=== PATIENT | female | born 1965 | race Caucasian/White ===

== ENCOUNTER 2022-03-30 05:06 | Observation (INO) ==
--- NOTE | 2022-03-10 14:34 | PAT Medication Instructions ---
Medication Instructions Date of Service March 10, 2022 Home Medications Medication Instructions Recorded blood sugar diagnostic (RichardTouch #200 ea 06/17/21 Verio test strips) clonazepam 0.5 mg tablet (Klonopin) 0.5 mg PO BID 30 Days #60 tab 01/11/22 divalproex 500 mg tablet,delayed 500 mg PO BID #60 tab 01/27/22 release (Depakote) carbidopa ER 50 mg-levodopa 200 mg 1 tab PO BID #60 tab 02/16/22 tablet,extended release gabapentin 300 mg capsule 300 mg PO .COMPLEX #120 cap 02/21/22 (Neurontin) cetirizine 10 mg tablet 10 mg PO QAM dicyclomine 10 mg capsule 10 mg PO QID PRN epinephrine 0.3 mg/0.3 mL injection, auto-injector (EpiPen) 0.3 mg IM Q3H PRN ketorolac 10 mg tablet 10 mg PO Q6H PRN lansoprazole 30 mg capsule,delayed release (Prevacid) 30 mg PO BID meclizine 12.5 mg tablet 12.5 mg PO UD PRN nitroglycerin 0.4 mg sublingual tablet (Nitrostat) 0.4 unit SUBLINGUAL UD PRN ondansetron HCl 4 mg tablet (Zofran) 4 mg PO TID PRN venlafaxine 150 mg capsule,extended release 24 hr 150 mg PO QAM albuterol sulfate 90 mcg/actuation aerosol inhaler 2 puff INHALATION Q6H PRN cholecalciferol (vitamin D3) 25 mcg (1,000 unit) capsule 25 mcg PO QAM venlafaxine 75 mg capsule,extended release 24 hr 75 mg PO HS Cbd Gummies 1 tab PO HS PRN cyclobenzaprine 10 mg tablet 10 mg PO TID PRN aspirin 81 mg chewable tablet 81 mg PO QAM nystatin 100,000 unit/gram topical powder 1 applic TOPICAL BID PRN triamcinolone acetonide 0.1 % topical cream 1 applic TOPICAL BID PRN famotidine 20 mg tablet 20 mg PO BID clonazepam 0.5 mg tablet (Klonopin) 0.5 mg PO BID divalproex 500 mg tablet,delayed release (Depakote) 500 mg PO BID carbidopa ER 50 mg-levodopa 200 mg tablet,extended release 1 tab PO BID gabapentin 300 mg capsule (Neurontin) 300 mg PO .COMPLEX buspirone 30 mg tablet 30 mg PO BID diltiazem HCl 120 mg capsule,extended release 24 hr 120 mg PO QAM insulin lispro 100 unit/mL subcutaneous pen (Humalog KwikPen (U-100) Insulin) 1 sliding scale dose SUBCUT USEASDIRECTD linagliptin 5 mg tablet (Tradjenta) 5 mg PO QAM Continue as directed epinephrine 0.3 mg/0.3 mL injection, auto-injector (EpiPen) 0.3 mg IM Q3H PRN (if needed) nitroglycerin 0.4 mg sublingual tablet (Nitrostat) 0.4 unit SUBLINGUAL UD PRN (if needed) ASK your surgeon for instructions ketorolac 10 mg tablet 10 mg PO Q6H PRN STOP taking 24 hours before surgery nystatin 100,000 unit/gram topical powder 1 applic TOPICAL BID PRN triamcinolone acetonide 0.1 % topical cream 1 applic TOPICAL BID PRN DO NOT take the morning of surgery cetirizine 10 mg tablet 10 mg PO QAM dicyclomine 10 mg capsule 10 mg PO QID PRN cholecalciferol (vitamin D3) 25 mcg (1,000 unit) capsule 25 mcg PO QAM cyclobenzaprine 10 mg tablet 10 mg PO TID PRN insulin lispro 100 unit/mL subcutaneous pen (Humalog KwikPen (U-100) Insulin) 1 sliding scale dose SUBCUT USEASDIRECTD linagliptin 5 mg tablet (Tradjenta) 5 mg PO QAM Take morning of surgery With a small sip of water, OTHERWISE NOTHING TO EAT OR DRINK AFTER MIDNIGHT: lansoprazole 30 mg capsule,delayed release (Prevacid) 30 mg PO BID meclizine 12.5 mg tablet 12.5 mg PO UD PRN (if needed) ondansetron HCl 4 mg tablet (Zofran) 4 mg PO TID PRN (if needed) venlafaxine 150 mg capsule,extended release 24 hr 150 mg PO QAM albuterol sulfate 90 mcg/actuation aerosol inhaler 2 puff INHALATION Q6H PRN (use if needed; please bring with you to hospital day of surgery if possible) aspirin 81 mg chewable tablet 81 mg PO QAM (unless surgeon directed otherwise) famotidine 20 mg tablet 20 mg PO BID clonazepam 0.5 mg tablet (Klonopin) 0.5 mg PO BID divalproex 500 mg tablet,delayed release (Depakote) 500 mg PO BID carbidopa ER 50 mg-levodopa 200 mg tablet,extended release 1 tab PO BID gabapentin 300 mg capsule (Neurontin) 300 mg PO .COMPLEX diltiazem HCl 120 mg capsule,extended release 24 hr 120 mg PO QAM buspirone 30 mg tablet 30 mg PO BID Take evening before surgery dicyclomine 10 mg capsule 10 mg PO QID PRN (if needed) lansoprazole 30 mg capsule,delayed release (Prevacid) 30 mg PO BID meclizine 12.5 mg tablet 12.5 mg PO UD PRN (if needed) ondansetron HCl 4 mg tablet (Zofran) 4 mg PO TID PRN (if needed) albuterol sulfate 90 mcg/actuation aerosol inhaler 2 puff INHALATION Q6H PRN (if needed) venlafaxine 75 mg capsule,extended release 24 hr 75 mg PO HS Cbd Gummies 1 tab PO HS PRN (if needed) cyclobenzaprine 10 mg tablet 10 mg PO TID PRN (if needed) famotidine 20 mg tablet 20 mg PO BID clonazepam 0.5 mg tablet (Klonopin) 0.5 mg PO BID divalproex 500 mg tablet,delayed release (Depakote) 500 mg PO BID carbidopa ER 50 mg-levodopa 200 mg tablet,extended release 1 tab PO BID gabapentin 300 mg capsule (Neurontin) 300 mg PO .COMPLEX insulin lispro 100 unit/mL subcutaneous pen (Humalog KwikPen (U-100) Insulin) 1 sliding scale dose SUBCUT USEASDIRECTD buspirone 30 mg tablet 30 mg PO BID Other Notes If you have any questions please call us at [phone] or [phone] or [phone] or [phone]
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
[2022-03-30] MEDS ORDERED: VANCOMYCIN HCL 1,250 MG in SODIUM CHLORIDE 0.9% 250 ML IV SCH ×2 (06:00→19:00)
[2022-03-30] MEDS ORDERED: ROPIVACAINE 0.5% HCL/PF 150 MG, BUPIVACAINE 0.75% MPF 20 ML, EPINEPHrine 0.15 MG, dexAM... INFIL SCH (06:00)
[2022-03-30] MEDS ORDERED: TRANEXAMIC ACID 1,000 MG x 1 **For Topical Use TOP SCH (06:00)
[2022-03-30] MEDS ORDERED: LR 500ML BOLUS, THEN 15ML/HR IV SCH (06:00)
[2022-03-30] MEDS ORDERED: LR 60ML/HR IV SCH (06:00)
[2022-03-30] MEDS ORDERED: ROPIVACAINE 0.5% 5 MG/ML 30 ML VIAL ONE (06:26)
[2022-03-30] MEDS ORDERED: BUPIVACAINE 0.5 % 5 MG/1 ML PF 10ML VIAL ONE (06:26)
--- NOTE | 2022-03-30 06:31 | History & Physical Bridge Note ---
Date of Service March 30, 2022 History & Physical Bridge Note I have examined the patient, reviewed the History & Physical and in the interval since the performance of the History & Physical I have noted the following changes of clinical significance: consent obtained/site verified/covid screen negative.no changes noted
[2022-03-30] MEDS ORDERED: LIDOCAINE 2% 2 ML VIAL/AMP(20MG/ML) INFIL ONE (06:33)
[2022-03-30] MEDS ORDERED: ONDANSETRON INJ 2 MG/ML 2 ML VIAL ONE (06:33)
[2022-03-30] MEDS ORDERED: PROPOFOL IV EMULSION 10 MG/ML 20 ML VIAL IV ONE (06:33)
[2022-03-30] MEDS ORDERED: MIDAZOLAM HCL 1 MG/ML 2ML VIAL ONE ×2 (06:33→07:10)
[2022-03-30] MEDS ORDERED: ORTHO JOINT ANESTHETIC ONE (06:35)
[2022-03-30] MEDS ORDERED: ePHEDrine sulfate 50 MG/ML AMP IV PRN (06:44)
[2022-03-30] MEDS ORDERED: KETOROLAC 30 MG/ML VIAL IV PRN (06:44)
[2022-03-30] MEDS ORDERED: HYDROmorphone INJ 1 MG/ML SYRINGE IV PRN (06:44)
[2022-03-30] MEDS ORDERED: ATROPINE SULFATE 0.1 MG/ML 10ML SYR IV PRN (06:44)
[2022-03-30] MEDS ORDERED: ONDANSETRON INJ 2 MG/ML 2 ML VIAL IV PRN ×2 (06:44→10:51)
[2022-03-30] MEDS ORDERED: CITRIC ACID/SODIUM CITRATE 15 ML UDC PO STA (06:51)
[2022-03-30] MEDS ORDERED: HYDROmorphone INJ 2 MG/ML SYR/VIAL ONE (07:11)
[2022-03-30] MEDS ORDERED: PHENYLEPHRINE 100MCG/ML 5ML SYR ONE (07:33)
--- NOTE | 2022-03-30 08:34 | Post Operative Brief Note ---
Immediate Post Op Note v1 Date of Surgery March 30, 2022 Pre & Post Diagnosis Operation Date: 03/30/22 07:00 Pre-Op Diagnosis: Osteoarthritis Knee Right Post-Op Diagnosis: Osteoarthritis Knee Right I identified the patient and participated in the time-out.: Yes Procedure Operation Date: 03/30/22 07:00 Actual Procedures p Right Total Knee Arthroplasty(Right) - Manish Quiroz MD Surgeon Manish Quiroz MD Digital Media Strategist Lu/Rusty/Jhonny-MS Estimated Blood Loss 75 Findings Consistent with Post-Op Diagnosis
--- NOTE | 2022-03-30 08:48 | Operative Report ---
Post Operative Report Pre & Post Diagnosis Operation Date: 03/30/22 07:00 Pre-Op Diagnosis: Osteoarthritis Knee Right Post-Op Diagnosis: Osteoarthritis Knee Right I identified the patient and participated in the time-out.: Yes Procedure Operation Date: 03/30/22 07:00 Actual Procedures p Right Total Knee Arthroplasty(Right) - Manish Quiroz MD Surgeon Arnav Quiroz MD Latex Foam Worker Lu/Rusty/Jhonny- Estimated Blood Loss 75 Findings Consistent with Post-Op Diagnosis Consistent with post op diagnosis. Specimens No specimens. Description of Procedure I particiapted in prepping dressing and assisted Dr. Quiroz during the procedure. Please see Dr. Quiroz note I attest to the content of the Intraoperative Record and any orders documented therein. Any exceptions are noted below.
--- NOTE | 2022-03-30 08:49 | Operative Report ---
Post Operative Report Pre & Post Diagnosis Operation Date: 03/30/22 07:00 Pre-Op Diagnosis: Osteoarthritis Knee Right Post-Op Diagnosis: Osteoarthritis Knee Right I identified the patient and participated in the time-out.: Yes Procedure Operation Date: 03/30/22 07:00 Actual Procedures p Right Total Knee Arthroplasty(Right) - Manish Quiroz MD Surgeon HUMAIRA Quiroz MD Chemistry Quality Control Analyst Lu/Rusty/Jhonny- Estimated Blood Loss 75 Findings Consistent with Post-Op Diagnosis see operative report Specimens see operative report Drains none Complications none Disposition Accompanied Patient To Recovery: Yes Indications This 56-year-old female presented to the office with complaints of persisting right knee pain. She had tried conservative care measures without improvement. She elected to proceed with surgical intervention after being educated about potential risks and outcomes. Preoperative imaging was obtained. Description of Procedure Patient was administered a spinal anesthetic and then taken to the operating room where she was given sedation. She was prepped and draped in the usual sterile fashion. Please see Dr. Quiroz's operative report for specifics of the procedure. I was present for the entire case from initial patient positioning through final wound closure. Assistance was provided in tissue re traction, hemostasis, trial implant placement, final implant placement, and final wound closure. Patient was taken to the recovery room in satisfactory condition. I attest to the content of the Intraoperative Record and any orders documented therein. Any exceptions are noted below.
--- NOTE | 2022-03-30 08:53 | Operative Report (OR) ---
DATE OF PROCEDURE: 03/30/2022. SURGEON: Manish Quiroz MD DIRECTOR CUSTOMER: Atilio Leigh MD SECOND DIRECTOR CUSTOMER: Allen Ojeda PA-C THIRD DIRECTOR CUSTOMER: Medical student, Jhonny. PREOPERATIVE DIAGNOSIS: Osteoarthritis, right knee. POSTOPERATIVE DIAGNOSIS: Osteoarthritis, right knee. OPERATION PERFORMED: Cemented right total knee replacement. SUMMARY OF IMPLANTS: DePuy J and J rotating platform size 3 femur, posterior cruciate substituting s ize 3 mobile bearing tray, size 38 patella, size 3 x 10 mm insert, 2 bags of Palacos G cement. BONE PATHOLOGY: Pending. ESTIMATED BLOOD LOSS: 75 mL. CRYSTALLOID: Per anesthesia. DEEP VENOUS THROMBOSIS PROPHYLAXIS: Per protocol. DESCRIPTION OF PROCEDURE: The patient was appropriately identified, site verified, consent verified. Antibiotics were confirmed as being given. The right lower extremity was prepped and draped in usu al routine fashion. Tourniquet was inflated to 275 mmHg after exsanguination of the limb with a rubb er Esmarch bandage for a total of 50 minutes. Midline exposure was utilized. Parapatellar arthrotom y performed. Synovectomy and osteophytes resected. Distal femur entered. Cruciates resected, tibia subluxated, menisci resected. Distal femur was then resected 14 mm, proximal tibia 4 mm. The exten steffen gap was excellent. The femur was sized between a 4 and a 3, was measured 4, cut 3. No notching . Flexion gap was then checked, it was excellent. Box cut was then made, a size 3 fit well. The ti clifford was sized for a 3. Appropriate broaching and reaming carried out and a trial spacer seated and t he extension was excellent, flexion was excellent, mid range flexion was excellent. Flexion was easi ly to 120 degrees. The patella was sized to a 38, it was resected leaving 14 mm. The seating hole was made and the tria l tracked well. All implants were then removed. TXA applied for 4-1/2 to 5 minutes. The wound was then irrigated. The Orthomix was injected and then the permanent implant cemented into position, tib ia, femur, and patella in that order. After 12 minutes, the tourniquet deflated. Minor bleeding poi nts controlled with electrocautery. At 14 minutes, the trial spacer was removed and the knee irrigat ed. Minor cement removal was required and then the permanent liner seated. The knee reduced and the n closed at 30-40 degrees of flexion with #2 Vicryl, 2-0 Vicryl, and stainless steel clips. Appropri ate dressing applied. The patient was transferred to recovery room in satisfactory condition, having tolerated the procedure well. Job ID: [id number]
--- NOTE | 2022-03-30 09:08 | XRay Report ---
XR knee RT 1 or 2V routine CLINICAL HISTORY: S/P R TKA TECHNIQUE: 2 views of the right knee were obtained. Comparison: Comparison is made to right knee MRI 12/07/2021 FINDINGS: Patient is status post total knee arthroplasty with expected postsurgical changes including soft tiss ue swelling, subcutaneous emphysema, and surgical staple placement. No periarticular lucency or hardw are fracture is seen. IMPRESSION: Expected postoperative appearance status post placement of total knee arthroplasty. ACT 112: Negative or not required by law. Electronically signed by: Ac Espinoza M.D. 03/30/2022 9:07 AM
--- NOTE | 2022-03-30 09:10 | Progress Notes ---
DATE OF NOTE: 03/30/2022 SUBJECTIVE: Postop check status post right total knee replacement. The patient is doing well. Yayo es chest pain, shortness of breath, fever, chills, nausea, vomiting or headache. OBJECTIVE: VITAL SIGNS: Stable. She is afebrile. Wound dressing clean, dry and intact. Spinal still in place. Postop x-rays look excellent. ASSESSMENT: Doing well. Continue care pathway. Discharge home tomorrow if does well overnight. Job ID: [id number]
--- NOTE | 2022-03-30 09:27 | Discharge Summary (DS) ---
DATE OF ADMISSION: 03/30/2022 DATE OF POTENTIAL DISCHARGE: 03/31/2022 CHIEF COMPLAINT: Right knee pain. Underwent elective right total knee replacement. The patient with complex medical history. HISTORY OF PRESENT ILLNESS: A 56-year-old female with multiple problems including significant cardia c disease. She is here for elective right total knee replacement and has been cleared for surgery. ALLERGIES: MEDICATION LIST OF ALLERGIES IS EXTENSIVE, please see med reconciliation sheet. PREADMISSION MEDICATIONS: Extensive, please see med reconciliation sheet. PAST MEDICAL AND PAST SURGICAL HISTORY: Remarkable for hypothyroidism, acute myeloid leukemia, AML-M 3 - in remission, anemia, anxiety, asthma, atypical chest pain, dysfunctional blind in right eye seco ndary to fungal infection, cerebral aneurysm left anterior communicating artery, chronic kidney disea se, concussion, COVID-19 long-hauler, fatigue, CVA, depression, diabetic polyneuropathy, dyspnea on e xertion, dyslipidemia, enchondroma, GERD, Guillain-[place], adverse reaction to anesthesia, history of blood transfusion reaction, history of COVID-19, history of toxic shock syndrome, endometriosis, on h ome oxygen therapy, paroxysmal supraventricular tachycardia, history of [place], PTSD, recurrent cystitis, restrictive lung disease, seizure disorder, sleep apnea, thyroid nodule, diabetes mellitus type 2, v ertigo. She has had thyroidectomy, sinus surgery, tooth extraction, marrow biopsy, bunion surgery, colonoscop ies, D and Cs, EGDs, laparoscopies, cholecystectomy, cataract surgery, , lumpectomy, abdomin al hysterectomy, epigastric hernia repair. FAMILY HISTORY: Remarkable for heart disease in family. SOCIAL HISTORY: Reveals she does not smoke, secondhand exposure as a child, history of social alcoho l. She is a . She does have a son and they live together. She is self-employed. She feels safe at home. REVIEW OF SYSTEMS: Reveals no new findings. Postop x-rays look excellent. ASSESSMENT: Status post right total knee replacement. PLAN: To home with home services tomorrow if she does well overnight. Job ID: [id number]
[2022-03-30] MEDS ORDERED: MAGNESIUM HYDROXIDE SUSP 30 ML UDC PO PRN (10:51)
[2022-03-30] MEDS ORDERED: MECLIZINE 12.5 MG TAB PO PRN (10:51)
[2022-03-30] MEDS ORDERED: ALUMINUM/MAGNESIUM SUSP 30 ML UDC PO PRN (10:51)
[2022-03-30] MEDS ORDERED: DICYCLOMINE HCL 10 MG CAP PO PRN (10:51)
[2022-03-30] MEDS ORDERED: HYDROmorphone INJ 0.5 MG/0.5 ML SYR IV PRN (10:51)
[2022-03-30] MEDS ORDERED: NALOXONE HCL 0.4 MG/1 ML VIAL/CARP IV PRN (10:51)
[2022-03-30] MEDS ORDERED: oxyCODONE HCL IR 5 MG TAB (IMMEDIATE RELEASE) PO PRN (10:51)
[2022-03-30] MEDS ORDERED: ALBUTEROL HFA 8 GM INHALER INH PRN (10:51)
[2022-03-30] MEDS ORDERED: bisacodyL 10 MG SUPP PR PRN (10:51)
[2022-03-30] MEDS ORDERED: diphenhydrAMINE 50 MG/ML VIAL IV PRN (10:51)
[2022-03-30] MEDS ORDERED: SODIUM CHLORIDE 0.9% 1000ML 1,000 ML IV SCH (10:51)
[2022-03-30] MEDS ORDERED: GLUCOSE 40% GEL 15 GM TUBE PO PRN (11:15)
[2022-03-30] MEDS ORDERED: DEXTROSE 50% 50 ML SYRINGE IV PRN (11:15)
[2022-03-30] MEDS ORDERED: CARBOHYDRATES FOR HYPOGLYCEMIA PO PRN (11:15)
[2022-03-30] MEDS ORDERED: GLUCOSE 10 TABS/TUBE PO PRN (11:15)
[2022-03-30] MEDS ORDERED: GLUCAGON FOR INJ 1 MG VIAL IM PRN (11:15)
[2022-03-30] MEDS: clonazePAM 0.5 MG TAB PO SCH ×2 (11:55→21:00)
[2022-03-30] MEDS: MULTIVITAMIN TAB PO SCH (12:17)
[2022-03-30] MEDS: GABAPENTIN 300 MG CAP PO SCH (12:17)
[2022-03-30] MEDS: DIVALPROEX DELAY RELEASE 500 MG TAB PO SCH ×2 (12:17→20:55)
[2022-03-30] MEDS: PANTOprazole 40 MG TAB PO SCH ×2 (12:17→20:55)
[2022-03-30] MEDS: DOCUSATE SODIUM 100 MG CAP PO SCH ×2 (12:17→20:55)
[2022-03-30] MEDS: INSULIN ASPART PER UNIT SC SCH ×3 (12:26→22:32)
[2022-03-30] MEDS: ASPIRIN 81 MG CHEW PO SCH (12:27)
[2022-03-30] MEDS: FAMOTIDINE 20 MG TAB PO SCH ×2 (12:27→20:55)
[2022-03-30] MEDS: CETIRIZINE HCL 10 MG TABLET PO SCH (12:40)
[2022-03-30] MEDS: busPIRone 15 MG TAB PO SCH ×2 (12:40→20:56)
[2022-03-30] MEDS: CARBIDOPA/LEVODOPA 50/200MG EXT REL TAB PO SCH ×2 (12:40→20:56)
[2022-03-30] MEDS: VENLAFAXINE HCL XR 150 MG CAPXR PO SCH (12:40)
[2022-03-30] MEDS: dilTIAZem HCL 120 MG CAPCR PO SCH (12:41)
[2022-03-30] MEDS: KETOROLAC 30 MG/ML VIAL IV SCH ×2 (12:41→18:18)
--- NOTE | 2022-03-30 13:36 | Anesthesiology Progress Note ---
Date of Service March 30, 2022 Anesthesia Post Procedure Vital Signs Vital Signs: Temp Pulse Pulse Resp BP Pulse Ox 03/30/22 12:42 36.8 C 91 H 16 109/72 97 03/30/22 11:40 36.4 C L 92 H 20 122/79 95 03/30/22 11:10 36.6 C 89 14 120/72 93 03/30/22 10:40 36.4 C L 86 12 112/74 94 03/30/22 10:25 36.6 C 87 14 121/72 94 03/30/22 10:15 90 12 108/76 93 03/30/22 10:05 94 H 15 109/78 95 03/30/22 09:55 92 H 12 111/76 95 03/30/22 09:45 93 H 12 141/79 H 96 03/30/22 09:35 90 14 126/83 92 03/30/22 09:25 87 12 143/74 H 95 03/30/22 09:15 90 16 115/73 93 03/30/22 09:05 89 16 126/68 94 03/30/22 08:55 91 H 16 113/66 96 03/30/22 08:48 36.6 C 89 21 101/46 L 91 03/30/22 05:36 36.9 C 80 18 139/82 97 Transfer of Care Handoff Completed per policy Notes Mental Status: alert / awake / arousable Patient Amnestic to Procedure: Yes Nausea / Vomiting: adequately controlled Pain: adequately controlled Airway Patency, RR, SpO2: stable & adequate BP & HR: stable & adequate Hydration State: stable & adequate Neuraxial Anesthesia: was administered and sensory block is resolving Anesthetic Complications: no major complications apparent
[2022-03-30] MEDS ORDERED: ORTHO WARFARIN NOMOGRAM SCH (14:00)
[2022-03-30] MEDS: ACETAMINOPHEN 500 MG TAB PO SCH ×2 (14:13→20:54)
--- NOTE | 2022-03-30 15:53 | Progress Notes ---
DATE OF SERVICE: 03/30/2022 SUBJECTIVE: Doing well status post right total knee replacement, is sitting up, eating, drinking, no aguilar no nausea or vomiting. Denies chest pain, shortness of breath, fever, chills, nausea, vomiting o r headache. OBJECTIVE: VITAL SIGNS: Stable. She is afebrile. Can do a straight leg raise. Can do active plantar and dorsiflexion of her foot, ankle and toes. ASSESSMENT AND PLAN: Doing well. Saline lock IV. Mobilize. Job ID: [id number]
[2022-03-30] MEDS: WARFARIN SOD 5 MG TAB PO SCH (16:28)
[2022-03-30] MEDS: ASCORBIC ACID 500 MG TAB PO SCH (16:29)
[2022-03-30] MEDS: FERROUS GLUCONATE 324 MG TAB PO SCH (16:29)
[2022-03-30] MEDS ORDERED: SENNA 8.6 MG TAB PO SCH (21:00)
[2022-03-30] MEDS ORDERED: VENLAFAXINE HCL XR 75 MG CAPXR PO SCH (21:00)
[2022-03-30] MEDS ORDERED: GABAPENTIN 300 MG CAP PO SCH (21:00)
[2022-03-31] MEDS: KETOROLAC 30 MG/ML VIAL IV SCH ×2 (00:05→05:56)
[2022-03-31] MEDS: ACETAMINOPHEN 500 MG TAB PO SCH (05:56)
[2022-03-31 06:49] LABS: Hemoglobin 10.4 g/dL (12.0-16.0); Mean Corpuscular Hemoglobin 32.4 pg (25-34); Mean Corpuscular Hgb Conc 34.7 g/dL (32-36); Mean Corpuscular Volume 93.5 fL (80-100); Mean Platelet Volume 9.4 fL (7.4-10.4); Platelet Count 168 K/uL (130-400); RDW Coefficient of Variation 12.2 % (11.5-14.5); RDW Standard Deviation 41.8 fL (36.4-46.3); Red Blood Count 3.21 M/uL (4.2-5.4); White Blood Count 9.05 K/uL (4.8-10.8)
[2022-03-31 07:04] LABS: Prothrombin Time 10.8 Seconds (9.0-12.0)
[2022-03-31 07:34] LABS: BUN Creatinine Ratio 25.7 (10-20); Calcium 8.1 mg/dl (8.5-10.1); Creatinine Clr Calc Pharmacy 96.1 ml/min; Est GFR (African American) 110.7 ml/min; Est GFR (Non-African American) 95.5 ml/min; Potassium 4.2 mmol/L (3.5-5.1)
--- NOTE | 2022-03-31 08:20 | Progress Notes ---
SUBJECTIVE: Postop check status post right total knee replacement. The patient is doing well, she i s sitting up in bed, reading. She has no issues. Denies chest pain, shortness of breath, fever, chi lls, nausea, vomiting or headache. OBJECTIVE: VITAL SIGNS: Stable. She is afebrile. LABORATORY DATA: Hematocrit stable at 30. INR pending. PRP pending. ASSESSMENT AND PLAN: Doing well. Discharge to home today after PT/OT. Coumadin dose per nomogram, if INR is less than 1.4, discharge on 4 mg Coumadin. Job ID: [id number]
[2022-03-31] MEDS: INSULIN ASPART PER UNIT SC SCH (08:54)
[2022-03-31] MEDS: ASPIRIN 81 MG CHEW PO SCH (08:58)
[2022-03-31] MEDS: busPIRone 15 MG TAB PO SCH (08:58)
[2022-03-31] MEDS: ASCORBIC ACID 500 MG TAB PO SCH (08:58)
[2022-03-31] MEDS: FERROUS GLUCONATE 324 MG TAB PO SCH (08:58)
[2022-03-31] MEDS: CARBIDOPA/LEVODOPA 50/200MG EXT REL TAB PO SCH (08:58)
[2022-03-31] MEDS: PANTOprazole 40 MG TAB PO SCH (08:58)
[2022-03-31] MEDS: DIVALPROEX DELAY RELEASE 500 MG TAB PO SCH (08:58)
[2022-03-31] MEDS: clonazePAM 0.5 MG TAB PO SCH (08:58)
[2022-03-31] MEDS: dilTIAZem HCL 120 MG CAPCR PO SCH (08:58)
[2022-03-31] MEDS: GABAPENTIN 300 MG CAP PO SCH (08:58)
[2022-03-31] MEDS: CETIRIZINE HCL 10 MG TABLET PO SCH (08:58)
[2022-03-31] MEDS: DOCUSATE SODIUM 100 MG CAP PO SCH (08:59)
[2022-03-31] MEDS: FAMOTIDINE 20 MG TAB PO SCH (08:59)
[2022-03-31] MEDS: MULTIVITAMIN TAB PO SCH (08:59)
[2022-03-31] MEDS: VENLAFAXINE HCL XR 150 MG CAPXR PO SCH (08:59)
--- NOTE | 2022-03-31 09:04 | Orthopedic Progress Note ---
Date of Service March 31, 2022 Assessment & Plan (1) S/P total knee replacement using cement: Plan: Patient's dressings were changed today by me. New pressure dressing and NATO hose were applied. She will leave this in place until seen by home health on Monday. It can be changed at that time if soiled. Continue using her walker for ambulation. Use the knee immobilizer when out of bed for today and tomorrow. It may be discontinued entirely on Monday morning. Ice and elevate the knee frequently to reduce pain and swelling. Prescriptions for Percocet and Coumadin have been sent to her pharmacy. Written discharge instructions have been provided. Follow-up in the office in 2 weeks as scheduled for staple removal. Admission and Anticipated Discharge Date Admission Date: March 30, 2022 Subjective Patient is seen in her room this morning. She states she did well overnight. She feels ready for discharge to home. She denies any chest pain, shortness of breath, nausea, vomiting, abdominal pain, or significant knee pain. She has been out of bed. She states her pain has been well controlled while in the hospital and she is pleased with the outcome so far. Review of Systems Review of Systems: Unchanged from yesterday. Physical Exam Physical Exam: General: Well-developed, well-nourished, middle-aged female, in no acute distress. Sitting in Bed. Alert and oriented. Conversive. Skin: Warm and dry with good turgor. No rashes. Postsurgical dressing is in place on the right knee. Upon removal, rashida are intact. Wound edges are well approximated. No erythema or warmth. No significant edema. No ecchymosis. No active bleeding. Musculoskeletal: Right knee evaluation reveals intact motor function to the knee and ankle. Patient is able to perform straight leg raise. She has full terminal extension. Flexion to 70 degrees easily. Neurologic: Gross sensation is intact across the leg by soft touch. Peripheral pulses are 2+. Results & Data ([facility]) Vital Signs (Past 12 Hours) Vital Signs Temp Pulse Resp BP Pulse Ox 03/31/22 07:45 37 C 84 18 107/68 91 03/31/22 03:17 36.4 C L 77 18 102/67 97 03/30/22 23:17 36.7 C 74 18 101/65 97 Laboratory Results CBC obtained this morning shows a white count of 9.05. H&H of 10.4 and 30.0. Platelets 168,000. INR is 1.0. PRP obtained this morning shows a sodium of 134. Potassium 4.2. BUN 18 with creatinine 0.70. Glucose this morning is 140. Max BSG overnight was 202.
[2022-03-31] MEDS: WARFARIN SOD 5 MG TAB PO SCH (11:44)
== END 2022-03-31 12:50 | disposition home health service (06) ==
LOC: 3E 05:06 → ASU 05:06

== ENCOUNTER 2022-11-03 19:51 | Inpatient (IN) ==
[2022-11-03 20:36] LABS: Basophils # (auto) 0.04 K/uL (0-0.2); Basophils % (auto) 0.3 %; Eosinophils # (auto) 0.05 K/uL (0-0.50); Eosinophils % (auto) 0.4 %; Hematocrit (blood only) 39.1 % (37.0-47.0); Hemoglobin 13.5 g/dl (12.0-16.0); Immature Granulocytes # (auto) 0.05 K/uL (0.01-0.20); Immature Granulocytes % (auto) 0.4 %; Lymphocytes # (auto) 1.04 K/uL (1.2-3.4); Lymphocytes % (auto) 8.9 %; Mean Corpuscular Hemoglobin 32.1 pg (25.0-34.0); Mean Corpuscular Hgb Conc 34.5 g/dL (32.0-36.0); Mean Corpuscular Volume 93.1 fL (80.0-100.0); Mean Platelet Volume 9.9 fL (9.4-12.4); Monocytes # (auto) 0.75 K/uL (0.11-0.59); Monocytes % (auto) 6.4 %; Neutrophils % (auto) 83.6 %; Platelet Count 198 K/uL (130-400); RDW Coefficient of Variation 11.8 % (11.5-14.5); White Blood Count 11.73 K/ul (4.8-10.8)
[2022-11-03] MEDS ORDERED: SODIUM CHLORIDE 0.9% 1000ML 1,000 ML IV ONE (21:55)
[2022-11-03] MEDS ORDERED: MoRPHine SULFATE 4 MG/ML 1 ML CARP\\VIAL IV STA (21:55)
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
[2022-11-03 22:27] LABS: Albumin Level 4.3 gm/dl (3.4-5.0); Bilirubin,Total 0.9 mg/dl (0.2-1.0); Calcium 9.3 mg/dl (8.5-10.1)
[2022-11-03 22:33] LABS: Albumin Globulin Ratio 1.5 (0.9-2); BUN Creatinine Ratio 22.2 (10-20); Creatinine Clr Calc Pharmacy 93.7 ml/min; Est GFR (Non-African American) 92.3 ml/min; Globulin 2.9 gm/dl (2.5-4.0); Total Protein 7.2 gm/dl (6.0-8.3)
[2022-11-03 22:41] LABS: Appearance Urine Cloudy (Clear); Bilirubin Urine 1+ (Negative); Blood Urine 3+ (Negative); Color Urine Red; Glucose Urine UA Negative (Negative); Ketones Urine Negative (Negative); Leukocyte Esterase Urine Trace (Negative); Nitrite Urine Positive (Negative); Protein Urine 3+ (Negative); Specific Gravity Urine 1.025 (1.000-1.030); Urobilinogen Urine Negative (Negative); pH Urine 6.5 (4.5-7.5)
[2022-11-03 22:44] LABS: Bacteria Urine 2+ (Negative); RBC Urine >30 /hpf (0-4)
[2022-11-03 22:45] LABS: Epithelial Cell Urine 0-5 /lpf (0-5); WBC Urine >30 /hpf (0-5)
[2022-11-03] MEDS ORDERED: cefTRIAXone SODIUM 1,000 MG in DEXTROSE 5% AD-VAN 50 ML IV STA (23:51)
--- NOTE | 2022-11-04 00:23 | Urology Consultation ---
Date of Consultation November 04, 2022 Assessment & Plan (1) Hematuria: I discussed with the treating emergency room physician and he is having the patient admitted on the hospitalist service secondary to pyelonephritis. From a urologic perspective we recommend proceeding as follows: Provide analgesics Provide antiemetics Provide IV fluid for hydration Follow serial labs Continue antibiotics. Rocephin has been initiated emergency department. Appropriate cultures have been sent and antibiotics can be tailored based on results of these cultures. At the present time the patient is afebrile, normotensive, and is not in renal failure. I therefore feel a trial of medical management for pyelonephritis is reasonable without the need for surgical intervention. The patient is noted to have hydronephrosis which is new on today's imaging. This could be related to scarring from patient's pyeloplasty or could be related to her underlying pyelonephritis. If the patient would develop fevers or hypotension or other signs of worsening sepsis a cystoscopy could be performed with potential stent placement. This would best be reserved however once the patient's pyelonephritis has been treated. If the patient does develop fevers consideration can be given to escalating the patient's antibiotics We will continue to follow while the patient is hospitalized (2) Hydronephrosis: History of Present Illness History of Present Illness This is a 56-year-old female who presented to [facility] emergency department secondary to hematuria and right flank pain. Patient notes that approximately 3 days ago she developed some spontaneous hematuria and she characterized it as dark red blood with some visible blood clots. She adds that she does not take any blood thinners or anticoagulants. She also notes that she has never had hematuria like this before. In addition the patient has some right-sided abdominal pain along with some right-sided flank pain. She notes that the pain does not really radiate and she does note that it does not have any modifying factors other than it was relieved with some morphine administered in the emergency department. She has associated dysuria and a feeling of incomplete bladder emptying. She also notes that her urine stream appears to be weaker than usual. She has had nausea without vomiting. She has not had any recorded fevers but did note some shakes and chills. She denies passing any kidney stones since her symptoms began. The patient does note that she was told she had kidney stones approximately 2 years ago and does not remember passing any stones and these have never given her any problems before. She further adds from a urologic standpoint she had hydronephrosis noted when she was age 12. She did see a urologist at [facility] in [place], [place] where she had to have a pyeloplasty. Patient notes that since this procedures performed she has had surveillance cystoscopies but has never had any stent placement in the right ureter. In addition she notes that she has never had lithotripsy for any kidney stones. The patient notes that she no longer follows with a urologist as the performing physician has since retired and she has never had any further issues so therefore she stopped following with a urologist. Since arrival to the emergency department patient has had labs and imaging which [facility] note reviewed. CT scan of the abdomen pelvis showed mild right hydronephrosis and hydroureter which extended to the level of the urinary bladder. No kidney stones were noted in the right sided urinary system. There was some edema of the surrounding ureter. These findings were felt to represent pyelonephritis. (This CT scan was compared to CT scan performed at [facility] on 07/13/2021. On this study the patient was noted to have some fullness of the right renal collecting system without hydronephrosis. 2 nonobstructing kidney stones were noted.) Labs include a CBC her white blood cell count had a slight elevation at 11.7. Hemoglobin, hematocrit, platelet count were all within normal range. Chemistry profile showed sodium, potassium, BUN, creatinine were all within normal range. Urinalysis showed cloudy urine with 3+ blood. This study was also positive for nitrites. There is trace leukocyte Estrace on the study and greater than 30 white blood cells per high- power field with 2+ bacteria. Since arrival to the emergency department the patient has received 1 L of normal saline solution and antibiotics in form of Rocephin. At the time of my interview she was resting comfortably in bed and she was in no distress. Allergies Allergy/AdvReac Type Severity Reaction Status Date / Time bee venom protein (honey bee) Allergy Severe all Verified 11/03/22 21:55 stinging insects - Anaphylaxis benzonatate Allergy Severe Anaphylaxis Verified 11/03/22 21:55 cephalexin [From Keflex] Allergy Severe Rash Verified 11/03/22 21:55 fish derived Allergy Severe RESP Verified 11/03/22 21:55 DISTRESS glimepiride Allergy Severe CAN'T Verified 11/03/22 21:55 REMEMBER, ONLY REMEMBER SEVERE Iodinated Contrast Media Allergy Severe Difficulty Verified 11/03/22 21:55 Breathing Penicillins Allergy Severe Hives Verified 11/03/22 21:55 metoclopramide Allergy Intermediate HIVES, RASH Verified 11/03/22 21:55 metronidazole Allergy Intermediate Rash Verified 11/03/22 21:55 sucralfate Allergy Intermediate HIVES, RASH Verified 11/03/22 21:55 Sulfa (Sulfonamide Allergy Intermediate Hives Verified 11/03/22 21:55 Antibiotics) trimethoprim Allergy Intermediate Hives Verified 11/03/22 21:55 adhesive tape Allergy Mild Rash Verified 11/03/22 21:55 doxepin Allergy Mild Rash Verified 11/03/22 21:55 norfloxacin Allergy Mild Rash Verified 11/03/22 21:55 cefadroxil Allergy Unknown Unknown Verified 11/03/22 21:55 Phenothiazines Allergy Unknown Unknown Verified 11/03/22 21:55 prochlorperazine Allergy Unknown Unknown Verified 11/03/22 21:55 [From Compazine] trazodone Allergy Unknown CAN'T Verified 11/03/22 21:55 REMEMBER diclofenac AdvReac Severe CAUSED A Verified 11/03/22 21:55 SEIZURE propofol AdvReac Severe agitated, Verified 11/03/22 21:55 combative, somnolent, hallucination tetracycline AdvReac Severe Abdominal Verified 11/03/22 21:55 Pain erythromycin base AdvReac Intermediate HEARING Verified 11/03/22 21:55 LOSS fentanyl AdvReac Intermediate depression Verified 11/03/22 21:55 meperidine [From Demerol] AdvReac Intermediate HALLUCINATI Verified 11/03/22 21:55 ONS metformin AdvReac Intermediate JITTERY Verified 11/03/22 21:55 ropinirole AdvReac Intermediate HALLUCINATI Verified 11/03/22 21:55 ONS chloraprep Allergy Intermediate Blister Uncoded 11/03/22 21:55 Home Medications Medication Instructions Recorded Confirmed Type cetirizine 10 mg tablet 10 mg PO QAM 10/04/18 11/03/22 History dicyclomine 10 mg capsule 10 mg PO QID PRN IBS 10/04/18 11/03/22 History epinephrine 0.3 mg/0.3 mL 0.3 mg IM Q3H PRN Allergic Reaction 10/04/18 11/03/22 History injection, auto-injector (EpiPen) lansoprazole 30 mg capsule,delayed 30 mg PO BID 10/04/18 11/03/22 History release (Prevacid) meclizine 12.5 mg tablet 12.5 mg PO UD PRN dizzy 10/04/18 11/03/22 History nitroglycerin 0.4 mg sublingual 0.4 unit sublingual UD PRN Chest 10/04/18 11/03/22 History tablet (Nitrostat) Pain albuterol sulfate 90 mcg/actuation 2 puff inhalation Q6H PRN 08/18/20 11/03/22 History aerosol inhaler Shortness Of Breath cholecalciferol (vitamin D3) 25 25 mcg PO QAM 08/18/20 11/03/22 History mcg (1,000 unit) capsule Cbd Gummies 1 tab PO HS PRN Sleep 07/13/21 11/03/22 History cyclobenzaprine 10 mg tablet 10 mg PO TID PRN MUSCLE SPASMS 07/13/21 11/03/22 History aspirin 81 mg chewable tablet 81 mg PO QAM 07/30/21 11/03/22 History nystatin 100,000 unit/gram topical 1 applic topical BID PRN Skin 07/30/21 11/03/22 History powder Irritation triamcinolone acetonide 0.1 % 1 applic topical BID PRN Skin 07/30/21 11/03/22 History topical cream Irritation famotidine 20 mg tablet 20 mg PO BID 08/23/21 11/03/22 History buspirone 30 mg tablet 30 mg PO BID 03/09/22 11/03/22 History insulin lispro 100 unit/mL 1 sliding scale dose subcut 03/10/22 11/03/22 History subcutaneous pen (Humalog KwikPen USEASDIRECTD (U-100) Insulin) linagliptin 5 mg tablet (Tradjenta) 5 mg PO QAM 03/10/22 11/03/22 History diltiazem HCl 120 mg 120 mg PO QAM #90 caps 04/12/22 11/03/22 Rx capsule,extended release 24 hr divalproex 500 mg tablet,delayed 500 mg PO .COMPLEX #90 tabs 07/11/22 11/03/22 Rx release (Depakote) blood sugar diagnostic (OneTouch #200 ea 08/01/22 Rx Verio test strips) clonazepam 0.5 mg tablet (Klonopin) 0.5 mg PO BID 30 days #60 tabs 10/20/22 11/03/22 Rx gabapentin 300 mg capsule 300 mg PO .COMPLEX #120 caps 10/24/22 11/03/22 Rx (Neurontin) carbidopa ER 50 mg-levodopa 200 mg 1 tab PO BID 11/03/22 11/03/22 History tablet,extended release ondansetron HCl 4 mg tablet 4 mg PO Q8H PRN NAUSEA/VOMITING 11/03/22 11/03/22 History rimegepant 75 mg disintegrating 75 mg PO DIRECTED for a migraine 11/03/22 11/03/22 History tablet (Nurtec ODT) Patient History Medical History Acquired hypothyroidism 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 Anemia Anxiety Asthma Atypical chest pain Blind right eye Cerebral aneurysm Chronic kidney disease, unspecified Concussion COVID-19 long hauler CVA (cerebral vascular accident) Depression Diabetic polyneuropathy MARTINEZ (dyspnea on exertion) Dyslipidemia Enchondroma GERD (gastroesophageal reflux disease) Guillain-[place] disease History of adverse reaction to anesthesia History of blood transfusion History of COVID-19 History of toxic shock syndrome (~1999) Hx of endometriosis Kidney stones Multiple falls On home oxygen therapy Paroxysmal SVT (supraventricular tachycardia) Past myocardial infarction PTSD (post-traumatic stress disorder) Recurrent cystitis Restrictive lung disease Seizure disorder Sleep apnea Thyroid nodule Type 2 diabetes mellitus Vertigo Surgical History H/O partial thyroidectomy H/O sinus surgery H/O tooth extraction H/O wisdom tooth extraction History of bone marrow biopsy History of bunionectomy History of colonoscopy History of dilatation and curettage History of esophagogastroduodenoscopy (EGD) History of insertion of tunneled central venous catheter (CVC) with port History of laparoscopy History of loop recorder History of removal of tunneled central venous catheter (CVC) with port Hx laparoscopic cholecystectomy Hx of cataract surgery Hx of tonsillectomy Previous section S/P breast lumpectomy S/P total abdominal hysterectomy Status post epigastric hernia repair, follow-up exam Family History Mother Heart disease Sister Heart disease Epilepsy Sister Epilepsy Social History Smoking Status: Never smoker Second Hand Exposure: Yes (as a child); Hx Alcohol Use: Yes Hx Substance Use: No Preferred Language: Faroese Communication Ability: Effective Ultrasound Applications Specialist Required: No Beliefs That Will Affect Care: None marital status: / Current Living Situation: Family Current Living Situation Comment: She and her one son live together current occupation: self-employed Feels Safe at Home: Yes Assistive Devices: Walker Review of Systems Constitutional: + chills; no fever Eyes: no eye pain Ear, Nose, Mouth, Throat: no ear pain Respiratory: no cough and no dyspnea Cardiovascular: no chest pain Gastrointestinal: + abdominal pain (Right sided) and + nausea; no vomiting Genitourinary: as per Subjective / HPI Musculoskeletal: + back pain (Right flank) Integumentary: no rash Neurologic: no localized weakness Physical Exam Constitutional: WD/WN, vitals as above Eyes: no conjunctival abnormality ENMT: Ears: no hearing impairment and no external ear abnormality Mouth: no oropharynx abnormality Neck: trachea midline Respiratory: normal respiratory effort; no respiratory distress and no labored breathing Cardiovascular: Rate/Rhythm: regular rate, regular rhythm and + tachycardic Vessels: dorsalis pedis pulses present and radial pulses present Gastrointestinal (Abdomen): Soft, nonrigid, nondistended. There is only mild tenderness with palpation on the right side of her abdomen. Musculoskeletal: No calf tenderness. Feet are warm and nonmottled. Skin: no rashes Neurologic: moves all extremities Psychiatric: A+Ox3, euthymic affect Genitourinary: + CVA tenderness (Right sided, noted with percussion) Results & Data ([facility]) Vital Signs (Past 12 Hours) Vital Signs Temp Pulse Pulse Resp BP BP Pulse Ox 11/03/22 22:00 105 H 18 111/60 97 11/03/22 20:59 107 H 16 152/104 H 98 11/03/22 19:57 37.4 C 119 H 18 142/91 H 98 O2 Del Method 11/03/22 22:00 Room Air 11/03/22 20:59 Room Air 11/03/22 19:57 Room Air PG Care Time/CCT Total # of Minutes Spent Total Time Spent with Patient: Total time spent is greater than 50% in coordination of care (as documented) at patient's floor/unit and/or counseling patient: Coding Level of Care Code INP/OBS CONSULT LVL 5, 80 MIN Diagnoses Hematuria R31.9 Hydronephrosis N13.30
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
[2022-11-04] MEDS ORDERED: LANSOPRAZOLE 30 MG SOLTAB PO STA (00:43)
[2022-11-04] MEDS ORDERED: POLYETHYLENE (MIRALAX) 17 GM PACK PO PRN (02:58)
[2022-11-04] MEDS ORDERED: GLUCOSE 40% GEL 15 GM TUBE PO PRN (02:58)
[2022-11-04] MEDS ORDERED: CARBOHYDRATES FOR HYPOGLYCEMIA PO PRN (02:58)
[2022-11-04] MEDS ORDERED: GLUCAGON FOR INJ 1 MG VIAL SQ PRN (02:58)
[2022-11-04] MEDS ORDERED: DOCUSATE SODIUM/SENNA 50/8.6MG TAB PO PRN (02:58)
[2022-11-04] MEDS ORDERED: MoRPHine SULFATE 2 MG/ML CARP IV PRN (02:58)
[2022-11-04] MEDS ORDERED: GLUCOSE 10 TAB/TUBE PO PRN (02:58)
[2022-11-04] MEDS ORDERED: DEXTROSE 50% 50 ML SYRINGE IV PRN (02:58)
[2022-11-04] MEDS: MoRPHine SULFATE 4 MG/ML 1 ML CARP\\VIAL IV PRN ×3 (03:37→20:32)
[2022-11-04] MEDS: LACTATED RINGER'S 1,000 ML IV SCH ×2 (03:40→13:23)
[2022-11-04] MEDS: ACETAMINOPHEN 325 MG TAB PO PRN ×2 (03:57→23:03)
[2022-11-04] MEDS ORDERED: Nursing to Pharmacy Communication SCH (04:15)
[2022-11-04] MEDS: INSULIN ASPART PER UNIT SC SCH ×4 (05:36→21:55)
[2022-11-04] MEDS ORDERED: INSULIN ASPART PER UNIT SC SCH (07:30)
--- NOTE | 2022-11-04 07:58 | CT Scan Report ---
CT abd pelvis wo con CLINICAL HISTORY: R flank pain TECHNIQUE: Helical axial images of the abdomen and pelvis were obtained. Automated dose lowering tech niques and/or adjustment according to patient size were utilized for this exam. This exam was perfor med without intravenous contrast. CT DOSE: 965.58 mGy.cm COMPARISON: Comparison is made to CT abdomen pelvis 07/13/2021 FINDINGS: Lower chest: No acute abnormality. Liver: Unremarkable. No focal lesions are seen. Gallbladder and biliary tree: Patient is status post cholecystectomy. No intra- or extrahepatic bilia ry ductal dilation. Pancreas: Unremarkable, no focal lesions. Spleen: Splenule is incidentally noted. Adrenals: Unremarkable. Kidneys and ureters: There is right hydronephrosis and hydroureter without identifiable obstructive s tone. A few calcifications are noted in the right inferior kidney. Bladder: Limited evaluation due to underdistention. Reproductive organs: Patient is status post hysterectomy. Bowel: Unremarkable. Lymph nodes Retroperitoneal: Subcentimeter lymph nodes are noted. Pelvic: Unremarkable. Mesenteric: Unremarkable. Peritoneum: Normal. Vessels: Atherosclerotic calcifications are seen. Abdominal wall: A fat-containing umbilical hernia is seen. Bones: Degenerative changes in the visualized spine and hip joints. IMPRESSION: Hydronephrosis and hydroureter with perinephric/periureteral stranding on the right. No obstructive s tones are seen. Findings may represent a recently passed stone, correlation for infectious process is recommended as well. ACT 112: Negative or not required by law. Electronically signed by: Ac Espinoza M.D. 11/04/2022 7:57 AM
[2022-11-04] MEDS: CARBIDOPA/LEVODOPA 50/200MG EXT REL TAB PO SCH ×2 (09:05→20:26)
[2022-11-04] MEDS: ASPIRIN 81 MG CHEW PO SCH (09:05)
[2022-11-04] MEDS: CETIRIZINE HCL 10 MG TABLET PO SCH (09:05)
[2022-11-04] MEDS: dilTIAZem HCL 120 MG CAPCR PO SCH (09:05)
[2022-11-04] MEDS: busPIRone 15 MG TAB PO SCH ×2 (09:05→20:25)
[2022-11-04] MEDS: FAMOTIDINE 20 MG TAB PO SCH ×2 (09:05→20:27)
[2022-11-04] MEDS: DIVALPROEX DELAY RELEASE 500 MG TAB PO SCH ×2 (09:06→20:27)
[2022-11-04] MEDS: GABAPENTIN 300 MG CAP PO SCH ×2 (09:06→20:28)
[2022-11-04] MEDS: LANTUS PER UNIT CHARGE SQ SCH ×2 (09:11→21:55)
[2022-11-04] MEDS: clonazePAM 0.5 MG TAB PO SCH ×2 (09:13→20:31)
--- NOTE | 2022-11-04 09:57 | Urology Progress Note ---
Date of Service November 04, 2022 Assessment & Plan (1) Pyelonephritis: (2) Hydronephrosis: (3) Hematuria: Plan 56yo/F with a hx of right pyeloplasty in childhood who presented with hematuria and flank pain admitted with suspected UTI/Pyelo. -CT a/p demonstrates right hydronephrosis and hydroureter with perinephric/periureteral stranding, no obstructing stones. This is likely inflammatory response related to underlying infection and/or possibly scarring from pyeloplasty. -At the present time, she is afebrile and normotensive. (Tmax 38.2C at 0311). -Labs show leukocytosis of 11.73, creatinine normal. -Urine culture preliminary with E. coli, blood cultures pending. -Continue antibiotics and tailor as culture data becomes available. -No plan for surgical intervention at this time. OK to have diet from standpoint. -Continue medical management for pyelonephritis with supportive care and antibiotic therapy. -Maintain greenwood catheter. -If patient fails to clinically progress or acutely worsens, will consider ureteral stent placement. -Urology will follow. Admission and Anticipated Discharge Date Admission Date: November 04, 2022 Supervising Physician Co-Signing Physician Notes I have discussed Ms. Barnett's case with LAURYN Brown and agree with the above documentation. She is feeling better with catheter in place and seems to be responding well to antibiotics. Urine culture showing E. coli, blood cultures pending. Vital signs remained stable. For now would recommend ongoing antibiotic therapy and would hold off urologic intervention. Subjective Patient seen and examined at bedside this AM. Asleep on arrival, awakened to name. No acute distress. Reports feeling a little better this morning. Still with some right flank pain, but reports an improvement since the Greenwood catheter was placed. She does note some dysuria. Greenwood catheter intact, draining cloudy yellow urine with some sediment in tubing. Has been NPO. Denies fever, chills, nausea, vomiting at present. Review of Systems 2 Constitutional: as per Subjective / HPI Gastrointestinal: as per Subjective / HPI Genitourinary: as per Subjective / HPI Physical Exam Constitutional: no acute distress Respiratory: no respiratory distress and no labored breathing Chest (Breasts): Additional Comments: Mild right sided abdominal/flank tenderness with palpation Skin: No rashes Neurologic: awake Psychiatric: Orientation: alert, oriented x 3 and cooperative Genitourinary: Greenwood intact, urine is cloudy yellow. Results & Data ([facility]) Vital Signs (Past 12 Hours) Vital Signs Temp Pulse Pulse Resp BP Pulse Ox O2 Del Method 11/04/22 09:15 36.6 C 93 H 18 113/74 99 Nasal Cannula 11/04/22 06:25 106 H 18 100/65 95 Nasal Cannula 11/04/22 05:22 37.3 C 11/04/22 04:27 112 H 33 H 94 11/04/22 03:11 38.2 C H 107 H 18 145/93 H 98 Room Air 11/04/22 02:30 93 Room Air 11/04/22 00:00 116 H 16 122/77 98 Room Air 11/03/22 22:00 105 H 18 111/60 97 Room Air O2 Flow Rate FiO2 11/04/22 09:15 2 11/04/22 06:25 3 11/04/22 05:22 11/04/22 04:27 3 11/04/22 03:11 11/04/22 02:30 11/04/22 00:00 11/03/22 22:00 PG Care Time/CCT Total # of Minutes Spent Total Time Spent with Patient: Total time spent is greater than 50% in coordination of care (as documented) at patient's floor/unit and/or counseling patient: Coding Level of Care Code None Diagnoses Pyelonephritis N12 Hydronephrosis N13.30 Hematuria R31.9
[2022-11-04 11:19] LABS: Estimated Average Glucose 151 mg/dl; Hemoglobin A1C 6.9 % (4.5-5.6)
[2022-11-04 15:03] LABS: A calco-baum cmplx NotReported Not Detected (NotDetected); Bact fragilis Not Reported Not Detected (NotDetected); C auris Not Reported Not Detected (NotDetected); CTX-M Resistant Gene Not Detected (NotDetected); Calbicans Not Reported Not Detected (NotDetected); Candida glabrata Not Reported Not Detected (NotDetected); Candida krusei Not Reported Not Detected (NotDetected); Cneoformans/gatti Not Reported Not Detected (NotDetected); Cparapsilosis Not Reported Not Detected (NotDetected); Ctropicalis Not Reported Not Detected (NotDetected); E cloacae compx Not Reported Not Detected (NotDetected); Efaecalis Not Reported Not Detected (NotDetected); Efaecium Not Reported Not Detected (NotDetected); Enterobacterales DETECTED (NotDetected); Enterobacterales Not Reported DETECTED (NotDetected); H influenzae Not Reported Not Detected (NotDetected); IMP Resistant Gene Not Detected (NotDetected); K aerogenes Not Reported Not Detected (NotDetected); KPC Resistant Gene Not Detected (NotDetected); Koxytoca Not Reported Not Detected (NotDetected); Kpneumoniae grp Not Reported Not Detected (NotDetected); Lmonocyt Not Reported Not Detected (NotDetected); N meningitidis Not Reported Not Detected (NotDetected); NDM Resistant Gene Not Detected (NotDetected); OXA 48 Like Resistant Gene Not Detected (NotDetected); P aeruginosa Not Reported Not Detected (NotDetected); Proteus spp Not Reported Not Detected (NotDetected); Salmonella spp Not Reported Not Detected (NotDetected); Smarcescens Not Reported Not Detected (NotDetected); Staph lugdunensis Not Reported Not Detected (NotDetected); Staph spp. Not Reported Not Detected (NotDetected); Staphaureus Not Reported Not Detected (NotDetected); Staphepi Not Reported Not Detected (NotDetected); Stenmaltophilia Not Reported Not Detected (NotDetected); Strep agal(GrpB) Not Reported Not Detected (NotDetected); Strep pneum Not Reported Not Detected (NotDetected); Strep pyog (GrpA) Not Reported Not Detected (NotDetected); Strep spp Not Reported Not Detected (NotDetected); VIM Resistant Gene Not Detected (NotDetected); mcr-1 Colistin Resistant Gene Not Detected (NotDetected)
[2022-11-04 16:28] LABS: Escherichia coli Not Reported DETECTED (NotDetected)
[2022-11-05] MEDS: CALCIUM CARBONATE 500 MG CHEWABLE TAB PO PRN ×2 (00:08→19:24)
[2022-11-05] MEDS: cefTRIAXone SODIUM 2,000 MG in DEXTROSE 5% 50 ML IV SCH (02:24)
[2022-11-05 07:30] LABS: Hematocrit (blood only) 32.2 % (37.0-47.0); Hemoglobin 10.9 g/dl (12.0-16.0); Mean Corpuscular Hgb Conc 33.9 g/dL (32.0-36.0); Mean Corpuscular Volume 94.4 fL (80.0-100.0); Mean Platelet Volume 9.7 fL (9.4-12.4); Platelet Count 144 K/uL (130-400); RDW Coefficient of Variation 11.8 % (11.5-14.5); RDW Standard Deviation 40.8 fL (36.4-46.3); Red Blood Count 3.41 M/uL (4.20-5.40); White Blood Count 5.84 K/ul (4.8-10.8)
[2022-11-05 07:53] LABS: Calcium 8.5 mg/dl (8.5-10.1); Potassium 4.3 mmol/L (3.5-5.1)
[2022-11-05 07:58] LABS: BUN Creatinine Ratio 17.3 (10-20); Creatinine Clr Calc Pharmacy 83.2 ml/min; Est GFR (African American) 92.8 ml/min; Est GFR (Non-African American) 80.1 ml/min
[2022-11-05] MEDS: ACETAMINOPHEN 325 MG TAB PO PRN ×2 (08:05→20:43)
[2022-11-05] MEDS: dilTIAZem HCL 120 MG CAPCR PO SCH (08:06)
[2022-11-05] MEDS: ASPIRIN 81 MG CHEW PO SCH (08:06)
[2022-11-05] MEDS: CETIRIZINE HCL 10 MG TABLET PO SCH (08:06)
[2022-11-05] MEDS: GABAPENTIN 300 MG CAP PO SCH ×2 (08:06→19:27)
[2022-11-05] MEDS: CARBIDOPA/LEVODOPA 50/200MG EXT REL TAB PO SCH ×2 (08:07→19:26)
[2022-11-05] MEDS: DIVALPROEX DELAY RELEASE 500 MG TAB PO SCH ×2 (08:07→19:26)
[2022-11-05] MEDS: FAMOTIDINE 20 MG TAB PO SCH ×2 (08:07→19:27)
[2022-11-05] MEDS: busPIRone 15 MG TAB PO SCH ×2 (08:07→19:25)
[2022-11-05] MEDS: clonazePAM 0.5 MG TAB PO SCH ×2 (08:09→19:31)
[2022-11-05] MEDS: LANTUS PER UNIT CHARGE SQ SCH ×2 (09:37→20:42)
[2022-11-05] MEDS: INSULIN ASPART PER UNIT SC SCH ×4 (09:37→20:43)
--- NOTE | 2022-11-05 10:10 | Urology Progress Note ---
Date of Service November 05, 2022 Assessment & Plan (1) Hydronephrosis: (2) Pyelonephritis: Valentine Telles is having persistent fevers and now demonstrating positive blood cultures as well as positive urine culture. She has been on antibiotics since arrival. Although it is possible to see recurrent/cyclic fevers for up to 72 hours even after initiating treatment of a pyelonephritis, I am concerned that there may be decreased drainage from the right kidney. This morning we discussed that for optimal source control, if she is not feeling better by tomorrow we should probably plan on right ureteral stent placement. We briefly discussed what the surgery entails and we will tentatively make her n.p.o. at midnight anticipating cystoscopy and right ureteral stent placement. In the meantime, she should continue antibiotics. Repeat blood cultures today. Admission and Anticipated Discharge Date Admission Date: November 04, 2022 Subjective Still having some fevers and chills, denies nausea or vomiting Still having some right flank discomfort Bladder symptoms have improved with catheter in place Blood cultures positive preliminary with GNR, urine growing E. coli - she remains on ceftriaxone Review of Systems Review of Systems: Fevers and chills overnight Genitourinary: Right flank pain Physical Exam Physical Exam: Seated in chair, NAD, mildly diaphoretic Respiratory: Breathing comfortably with supplemental oxygen by nasal cannula, no accessory muscle use Results & Data ([facility]) Vital Signs (Past 12 Hours) Vital Signs Temp Pulse Pulse Pulse Pulse Resp BP 11/05/22 09:33 37.1 C 100 H 16 93/57 L 11/05/22 08:05 11/05/22 08:56 38.9 C H 109 H 17 91/63 L 11/05/22 07:30 39.2 C H 112 H 18 115/66 11/05/22 02:26 37 C 95 H 11/05/22 00:35 38.1 C H 92 H 11/04/22 22:51 38.8 C H 108 H 20 11/04/22 22:44 102 H 21 BP Pulse Ox O2 Del Method O2 Flow Rate 11/05/22 09:33 95 Nasal Cannula 2 11/05/22 08:05 Nasal Cannula 2 11/05/22 08:56 97 Nasal Cannula 2 11/05/22 07:30 95 Nasal Cannula 11/05/22 02:26 95 Room Air 11/05/22 00:35 11/04/22 22:51 119/82 93 Room Air 11/04/22 22:44 92 3 PG Care Time/CCT Total # of Minutes Spent Total Time Spent with Patient: Total time spent is greater than 50% in coordination of care (as documented) at patient's floor/unit and/or counseling patient: Coding Level of Care Code 38718 SUB INP/OBS CARE 11/02MIN Diagnoses Hydronephrosis N13.30 Pyelonephritis N12
[2022-11-05] MEDS: SODIUM CHLORIDE 0.9% 1000ML 1,000 ML IV SCH ×2 (10:54→19:23)
--- NOTE | 2022-11-05 12:03 | XRay Report ---
XR chest 2V PA/lateral HISTORY: hypoxia COMPARISON: Chest 03/11/2022. FINDINGS: There are low lung volumes. Left basilar linear densities favor scarring or subsegmental at electasis. Otherwise, the lungs are clear. The heart is top normal in size. No pleural effusions. No pneumothorax. Prior cholecystectomy. IMPRESSION: No acute process. ACT 112: Negative or not required by law. Electronically signed by: Carmine Contreras M.D. 11/05/2022 12:02 PM
[2022-11-05] MEDS: MoRPHine SULFATE 4 MG/ML 1 ML CARP\\VIAL IV PRN ×3 (14:05→23:53)
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
[2022-11-05] MEDS ORDERED: diphenhydrAMINE 50 MG/ML VIAL ONE (17:18)
[2022-11-05] MEDS ORDERED: HYDROCORTISONE SOD SUCCINATE 100 MG/2 ML VIAL ONE (17:18)
[2022-11-05] MEDS ORDERED: ALBUTEROL 0.5% NEB SOLN 2.5 MG/0.5 ML VIAL ONE (17:18)
[2022-11-05] MEDS ORDERED: IPRATROPIUM BROMIDE NEB SOLN 0.02% 2.5 ML VIAL ONE (17:18)
[2022-11-05] MEDS ORDERED: FAMOTIDINE/PF 20 MG/2 ML VIAL IV ONE (17:23)
[2022-11-05] MEDS: ONDANSETRON INJ 2 MG/ML 2 ML VIAL IV PRN (20:44)
--- NOTE | 2022-11-05 21:16 | Hospitalist Progress Note ---
Date of Service November 05, 2022 Assessment & Plan (1) Hematuria: Plan: 56-year-old female with history of congenital ureteral stricture, prior kidney stones presenting with several days of progressive right flank pain, increased urinary frequency/urgency dysuria and hematuria with passage of clots. Patient is hemodynamically stable, Hgb = 13.5, HCT = 39.1. Urinalysis suggestive of infection with 3+ blood present. CT of the abdomen with right perinephric stranding, hydroureteronephrosis concerning for possible pyelonephritis. No stones visualized per stat rad read. Admit to medical Place Salazar catheter to monitor output Ceftriaxone 2 g IV daily IV fluids with LR at 100 mL/h x 2 L Morphine as needed for pain Bowel regimen as needed Zofran as needed for nausea Urology consultation appreciated Patient will have a stent placement tomorrow if she continues to not improve. She has been having low blood pressure and intermittent fevers. _will continue current IV antibiotics. (2) Hydronephrosis: Plan: As above, suspect UTI/pyelonephritis. No stones noted on imaging. Management with IV antibiotics, pain control, antiemetics as above Urology consultation appreciated -concern she may not be draining and may require a ureteral stent. (3) Seizure disorder: Plan: Well-controlled on home medications Continue Depakote at home [id number] mg in the morning and 1000 mg at bedtime Continue Klonopin (4) Type 2 diabetes mellitus, with long-term current use of insulin: Plan: Overall well controlled. Last hemoglobin A1c on 03/11/2022 = 6.6. Blood sugar mildly elevated today at 176 Lantus 5 units twice daily Insulin sliding scale Hold home medications Repeat hemoglobin A1c with a.m. labs (5) JASON on CPAP: Plan: Chronic. Patient is compliant with her CPAP 3 L of oxygen nightly CPAP nightly with 3 L oxygen (6) GERD (gastroesophageal reflux disease): Plan: Chronic. Well-controlled with home medications Continue Pepcid 20 mg p.o. twice daily Continue Prevacid (7) Depression: Plan: Chronic. Stable. Continue buspirone (8) RLS (restless legs syndrome): Plan: Chronic. Patient follows with neurology. Continue gabapentin Continue Sinemet Fall precautions FENLR at 100 mL/h x 2 L, electrolytes within normal limits, n.p.o. for now Ppx:NATO stockings for VTE prophylaxis Codefull per discussion with patient Dispoadmit to medical Admission and Anticipated Discharge Date Admission Date: November 04, 2022 Subjective 56 yo female reports feeling weak. She has no new symptoms Review of Systems Review of Systems: All systems reviewed & are unremarkable except as noted in HPI & below Physical Exam Physical Exam: General: patient resting comfortably, NAD, non-toxic in appearance, AA&O x 4 Skin: warm, dry, intact, no rashes or lesions HEENT: NC/AT, PERRL, EOMI, anicteric sclera, conjunctiva without injection, external ear normal to inspection and nontender, nares patent, moist mucus membranes, dentition intact, no oropharyngeal lesions, neck supple, trachea midline, no LAD, no thyromegaly, no JVD Heart: +S1/S2, regular, no m/r/g Lungs: equal air entry bilaterally, no rales/rhonchi/wheezes Abd: +BS, soft, NT/ND, no masses/organomegaly/ascites, right flank pain, mild suprapubic tenderness Ext: warm, 2+ pulses in UE/LE bilaterally, no clubbing/cyanosis or edema Neuro: nonfocal, patient AA&O x 4, speech intact, no facial droop, moving all extremities on command with equal strength 5/5 Results & Data Results & Data ([facility]) Vital Signs (Past 12 Hours) Vital Signs Temp Pulse Resp BP Pulse Ox O2 Del Method O2 Flow Rate 11/05/22 16:00 36.6 C 80 18 112/66 99 Nasal Cannula 2 11/05/22 10:18 36.8 C 96 H 16 102/68 96 Nasal Cannula 2 11/05/22 09:33 37.1 C 100 H 16 93/57 L 95 Nasal Cannula 2 PG Care Time/CCT Total # of Minutes Spent Total Time Spent with Patient: Total time spent is greater than 50% in coordination of care (as documented) at patient's floor/unit and/or counseling patient: Coding Level of Care Code 67685 SUB INP/OBS CARE 3/50MIN Diagnoses Hematuria R31.9 Hydronephrosis N13.30 Seizure disorder G40.909 Type 2 diabetes mellitus, with long-term current use of insulin E11.9; Z79.4 JASON on CPAP G47.33; Z99.89 GERD (gastroesophageal reflux disease) K21.9 Depression F32.9 RLS (restless legs syndrome) G25.81
[2022-11-06] MEDS: cefTRIAXone SODIUM 2,000 MG in DEXTROSE 5% 50 ML IV SCH (03:00)
[2022-11-06] MEDS: INSULIN ASPART PER UNIT SC SCH ×4 (06:10→21:34)
[2022-11-06] MEDS ORDERED: HYDROmorphone INJ 2 MG/ML SYR/VIAL ONE (07:08)
[2022-11-06] MEDS ORDERED: MIDAZOLAM HCL 1 MG/ML 2ML VIAL ONE (07:08)
[2022-11-06] MEDS ORDERED: ETOMIDATE 2 MG/ML 20 ML VIAL IV ONE (07:10)
[2022-11-06] MEDS ORDERED: ONDANSETRON INJ 2 MG/ML 2 ML VIAL ONE (07:11)
[2022-11-06] MEDS ORDERED: ALBUTEROL 0.083% NEBU SOLN 3 ML VIAL INH PRN (07:22)
[2022-11-06] MEDS ORDERED: ATROPINE SULFATE 0.1 MG/ML 10ML SYR IV PRN (07:22)
[2022-11-06] MEDS ORDERED: ePHEDrine sulfate 50 MG/ML AMP IV PRN (07:22)
[2022-11-06] MEDS ORDERED: HYDROmorphone INJ 2 MG/ML SYR/VIAL IV PRN (07:22)
[2022-11-06] MEDS ORDERED: ONDANSETRON INJ 2 MG/ML 2 ML VIAL IV PRN (07:22)
--- NOTE | 2022-11-06 07:42 | Urology Progress Note ---
Date of Service November 06, 2022 Assessment & Plan (1) Pyelonephritis: (2) Hydronephrosis: Plan We reviewed the plan for cystoscopy, right retrograde pyelogram, right ureteral stent placement. Reviewed risks of the surgery including bleeding, infection, injury to the urinary tract, inability to place a stent, need for additional procedures. She expressed understanding and willingness to proceed with surgery. Admission and Anticipated Discharge Date Admission Date: November 04, 2022 Subjective Feeling okay, still having fevers overnight No nausea or vomiting Still having some right flank tenderness Review of Systems Constitutional: Fevers overnight Physical Exam Physical Exam: Well-appearing, NAD Chest (Breasts): Additional Comments: Breathing comfortably, supplemental oxygen with nasal cannula Results & Data ([facility]) Vital Signs (Past 12 Hours) Vital Signs Temp Pulse Resp BP Pulse Ox O2 Del Method O2 Flow Rate 11/05/22 22:20 37.3 C 88 18 102/65 97 Nasal Cannula 2 11/05/22 20:43 38.4 C H PG Care Time/CCT Total # of Minutes Spent Total Time Spent with Patient: Total time spent is greater than 50% in coordination of care (as documented) at patient's floor/unit and/or counseling patient: Coding Level of Care Code 36990 SUB INP/OBS CARE 11/02MIN Diagnoses Pyelonephritis N12 Hydronephrosis N13.30
[2022-11-06] MEDS ORDERED: DIATRIZOATE MEGLUMINE 30% 100ML VIAL INSTIL PRN (08:08)
--- NOTE | 2022-11-06 08:11 | Operative Report ---
PG Post Operative Report Pre & Post Diagnosis Operation Date: 11/06/22 07:45 Preop diagnosis: Right-sided hydronephrosis Postop diagnosis right-sided hydronephrosis I identified the patient and participated in the time-out.: Yes Procedure Operation Date: 11/06/22 07:45 Cystoscopy, right retrograde pyelogram, right ureteral stent placement Surgeon Maximino Balbuena MD Applied Psychology Chair None Estimated Blood Loss 0 Findings Consistent with Post-Op Diagnosis Specimens Urine from right kidney for culture Drains 6 Slovak by 24 cm double-J ureteral stent in the right ureter Anesthesia Type General Complications none Disposition Accompanied Patient To Recovery: Yes Disposition: Recovery Room Indications This is a 56-year-old female with history of right pyeloplasty as an adolescent. She has been in the hospital with ongoing fevers and concern for UTI. Although there is no clear obstruction on CT scan, due to inability to clear the infection she is being being brought to the OR for right ureteral stent place ment. Description of Procedure The patient was identified in the holding area and informed consent was confirmed. She was marked on the right side, then was taken to the operating room where anesthesia was initiated. She was placed in the dorsal lithotomy position with all pressure points appropriately padded. She was prepped and draped in the usual sterile fashion and a preoperative timeout was performed. A well-lubricated cystoscope was inserted per urethra and panendoscopy was performed. The urethra was normal in appearance. The bladder was of normal size with ureteral orifices in orthotopic position. On the left wall of the bladder there were some papillary fronds, however this had an edematous appearance rather than tumor. The right ureteral orifice was identified and cannulated with a 5 Slovak open- ended catheter. A retrograde pyelogram was performed demonstrating the distal ureter was normal in course and caliber. There was dilation of the proximal ureter and renal pelvis. No filling defects were appreciated. A 0.038" ZIPwire was advanced to the level of the kidney under fluoroscopic guidance. Over the wire, a 6 Slovak x 24 centimeter double-J ureteral stent was advanced. When the wire was removed, the proximal curl was visualized in the kidney with x-ray, and the distal curl visualized in the bladder with the cystoscope. There was drainage of turbid material from the right ureter alongside and through the stent. A sample of this was collected and sent for urine culture labeled as urine from the right kidney. A 16 Slovak Salazar catheter was inserted per urethra. The balloon was inflated with 10 mL of normal saline and the catheter was attached to gravity drainage. The patient was then awakened from anesthesia and was brought to the PACU in stable condition. I attest to the content of the Intraoperative Record and any orders documented therein. Any exceptions are noted below.
[2022-11-06] MEDS: FAMOTIDINE 20 MG TAB PO SCH ×2 (08:19→20:54)
[2022-11-06] MEDS: GABAPENTIN 300 MG CAP PO SCH ×2 (08:19→20:55)
[2022-11-06] MEDS: busPIRone 15 MG TAB PO SCH ×2 (08:19→20:52)
[2022-11-06] MEDS: CARBIDOPA/LEVODOPA 50/200MG EXT REL TAB PO SCH ×2 (08:19→20:53)
[2022-11-06] MEDS: CETIRIZINE HCL 10 MG TABLET PO SCH (08:19)
[2022-11-06] MEDS: ASPIRIN 81 MG CHEW PO SCH (08:19)
[2022-11-06] MEDS: LANTUS PER UNIT CHARGE SQ SCH ×2 (08:19→21:34)
[2022-11-06] MEDS: dilTIAZem HCL 120 MG CAPCR PO SCH (08:19)
[2022-11-06] MEDS: DIVALPROEX DELAY RELEASE 500 MG TAB PO SCH ×2 (08:19→20:53)
[2022-11-06] MEDS: clonazePAM 0.5 MG TAB PO SCH ×2 (08:19→21:00)
--- NOTE | 2022-11-06 08:28 | Fluoroscopy Report ---
FL KUB CLINICAL HISTORY: RIGHT STENT PLACEMENT COMPARISON STUDY: CT of the abdomen and pelvis November 03, 2022. FLUOROSCOPY TIME: 14 seconds. EXPOSURE DOSE: 5.07 mGy FLUOROSCOPIC IMAGES: 1 FINDINGS: Fluoroscopy was provided during retrograde exam with right ureteral stent insertion. The ri ght collecting system is partially opacified. Proximal aspect of the right renal stent projects over the right renal pelvis. IMPRESSION: Fluoroscopy provided during right retrograde exam with right ureteral stent insertion. ACT 112: Negative or not required by law. Electronically signed by: Glenroy Padilla M.D. 11/06/2022 8:27 AM
--- NOTE | 2022-11-06 08:47 | Anesthesiology Progress Note ---
Date of Service November 06, 2022 Anesthesia Post Procedure Vital Signs Vital Signs: Temp Pulse Pulse Resp BP Pulse Ox O2 Del Method 11/06/22 08:35 87 18 110/78 95 Oxymask 11/06/22 08:25 83 18 125/81 99 Oxymask 11/06/22 08:19 36.4 C L 87 18 130/82 97 Oxymask 11/05/22 19:25 Nasal Cannula, CPAP 11/05/22 22:20 37.3 C 88 18 102/65 97 Nasal Cannula 11/05/22 20:43 38.4 C H 11/05/22 16:00 36.6 C 80 18 112/66 99 Nasal Cannula 11/05/22 10:18 36.8 C 96 H 16 102/68 96 Nasal Cannula 11/05/22 09:33 37.1 C 100 H 16 93/57 L 95 Nasal Cannula 11/05/22 08:56 38.9 C H 109 H 17 91/63 L 97 Nasal Cannula O2 Flow Rate 11/06/22 08:35 5 11/06/22 08:25 5 11/06/22 08:19 5 11/05/22 19:25 2 11/05/22 22:20 2 11/05/22 20:43 11/05/22 16:00 2 11/05/22 10:18 2 11/05/22 09:33 2 11/05/22 08:56 2 Pain Intensity Lower Abdomen: Pain Intensity: 0 Bilateral Lower Back: Pain Intensity: 0 Transfer of Care Handoff Completed per policy Notes Mental Status: alert / awake / arousable Patient Amnestic to Procedure: Yes Nausea / Vomiting: adequately controlled Pain: adequately controlled Airway Patency, RR, SpO2: stable & adequate BP & HR: stable & adequate Hydration State: stable & adequate Anesthetic Complications: no major complications apparent and Pt Satisfied with anesthetic care
[2022-11-06] MEDS: ONDANSETRON INJ 2 MG/ML 2 ML VIAL IV PRN ×2 (15:45→22:03)
[2022-11-06] MEDS: CALCIUM CARBONATE 500 MG CHEWABLE TAB PO PRN (17:18)
[2022-11-06] MEDS: MoRPHine SULFATE 4 MG/ML 1 ML CARP\\VIAL IV PRN (17:18)
--- NOTE | 2022-11-06 23:03 | Hospitalist Progress Note ---
Date of Service November 06, 2022 Assessment & Plan (1) Hematuria: Plan: 56-year-old female with history of congenital ureteral stricture, prior kidney stones presenting with several days of progressive right flank pain, increased urinary frequency/urgency dysuria and hematuria with passage of clots. Patient is hemodynamically stable, Hgb = 13.5, HCT = 39.1. Urinalysis suggestive of infection with 3+ blood present. CT of the abdomen with right perinephric stranding, hydroureteronephrosis concerning for possible pyelonephritis. No stones visualized per stat rad read. Admit to medical Place Salazar catheter to monitor output Ceftriaxone 2 g IV daily IV fluids with LR at 100 mL/h x 2 L Morphine as needed for pain Bowel regimen as needed Zofran as needed for nausea Urology consultation appreciated S/P ureteral stent Patient is improving. No longer having fevers and is feeling much better. _will continue current IV antibiotics. (2) Hydronephrosis: Plan: As above, suspect UTI/pyelonephritis. No stones noted on imaging. Management with IV antibiotics, pain control, antiemetics as above Urology consultation appreciated -concern she may not be draining and may require a ureteral stent. (3) Seizure disorder: Plan: Well-controlled on home medications Continue Depakote at home mg in the morning and 1000 mg at bedtime Continue Klonopin (4) Type 2 diabetes mellitus, with long-term current use of insulin: Plan: Overall well controlled. Last hemoglobin A1c on 03/11/2022 = 6.6. Blood sugar mildly elevated today at 176 Lantus 5 units twice daily Insulin sliding scale Hold home medications Repeat hemoglobin A1c with a.m. labs (5) JASON on CPAP: Plan: Chronic. Patient is compliant with her CPAP 3 L of oxygen nightly CPAP nightly with 3 L oxygen (6) GERD (gastroesophageal reflux disease): Plan: Chronic. Well-controlled with home medications Continue Pepcid 20 mg p.o. twice daily Continue Prevacid (7) Depression: Plan: Chronic. Stable. Continue buspirone (8) RLS (restless legs syndrome): Plan: Chronic. Patient follows with neurology. Continue gabapentin Continue Sinemet Fall precautions Admission and Anticipated Discharge Date Admission Date: November 04, 2022 Subjective Patient reports no new symptoms. Review of Systems Review of Systems: All systems reviewed & are unremarkable except as noted in HPI & below Physical Exam Physical Exam: General: patient resting comfortably, NAD, non-toxic in appearance, AA&O x 4 Skin: warm, dry, intact, no rashes or lesions HEENT: NC/AT, PERRL, EOMI, anicteric sclera, conjunctiva without injection, external ear normal to inspection and nontender, nares patent, moist mucus membranes, dentition intact, no oropharyngeal lesions, neck supple, trachea midline, no LAD, no thyromegaly, no JVD Heart: +S1/S2, regular, no m/r/g Lungs: equal air entry bilaterally, no rales/rhonchi/wheezes Abd: +BS, soft, NT/ND, no masses/organomegaly/ascites, right flank pain, mild suprapubic tenderness Ext: warm, 2+ pulses in UE/LE bilaterally, no clubbing/cyanosis or edema Neuro: nonfocal, patient AA&O x 4, speech intact, no facial droop, moving all extremities on command with equal strength 5/5 Results & Data Results & Data ([facility]) Vital Signs (Past 12 Hours) Vital Signs Temp Pulse Pulse Resp BP Pulse Ox O2 Del Method 11/06/22 22:48 36.7 C 62 20 110/67 94 Room Air 11/06/22 15:13 36.8 C 75 20 132/77 95 Room Air 11/06/22 12:49 37.0 C 82 20 113/72 92 Room Air 11/06/22 11:24 37.2 C 77 16 119/62 94 Nasal Cannula O2 Flow Rate 11/06/22 22:48 11/06/22 15:13 11/06/22 12:49 11/06/22 11:24 2 PG Care Time/CCT Total # of Minutes Spent Total Time Spent with Patient: Total time spent is greater than 50% in coordination of care (as documented) at patient's floor/unit and/or counseling patient: Coding Level of Care Code 46615 SUB INP/OBS CARE 2/35MIN Diagnoses Hematuria R31.9 Hydronephrosis N13.30 Seizure disorder G40.909 Type 2 diabetes mellitus, with long-term current use of insulin E11.9; Z79.4 JASON on CPAP G47.33; Z99.89 GERD (gastroesophageal reflux disease) K21.9 Depression F32.9 RLS (restless legs syndrome) G25.81
[2022-11-07] MEDS: cefTRIAXone SODIUM 2,000 MG in DEXTROSE 5% 50 ML IV SCH (02:37)
[2022-11-07] MEDS: MoRPHine SULFATE 4 MG/ML 1 ML CARP\\VIAL IV PRN ×2 (02:50→14:57)
[2022-11-07] MEDS: CALCIUM CARBONATE 500 MG CHEWABLE TAB PO PRN (02:57)
[2022-11-07 07:03] LABS: Hematocrit (blood only) 28.1 % (37.0-47.0); Hemoglobin 9.9 g/dl (12.0-16.0); Mean Corpuscular Hemoglobin 32.4 pg (25.0-34.0); Mean Corpuscular Hgb Conc 35.2 g/dL (32.0-36.0); Mean Corpuscular Volume 91.8 fL (80.0-100.0); Mean Platelet Volume 9.7 fL (9.4-12.4); Platelet Count 152 K/uL (130-400); RDW Coefficient of Variation 11.7 % (11.5-14.5); RDW Standard Deviation 39.6 fL (36.4-46.3); Red Blood Count 3.06 M/uL (4.20-5.40); White Blood Count 4.83 K/ul (4.8-10.8)
[2022-11-07] MEDS: ONDANSETRON INJ 2 MG/ML 2 ML VIAL IV PRN ×2 (07:30→14:57)
[2022-11-07] MEDS: ACETAMINOPHEN 325 MG TAB PO PRN (07:37)
[2022-11-07 07:51] LABS: Calcium 8.7 mg/dl (8.5-10.1); Potassium 3.6 mmol/L (3.5-5.1)
[2022-11-07 07:56] LABS: BUN Creatinine Ratio 17.6 (10-20); C Reactive Protein 3.93 mg/dl (0-0.5); Creatinine Clr Calc Pharmacy 99.1 ml/min; Est GFR (African American) 111.8 ml/min; Est GFR (Non-African American) 96.4 ml/min
[2022-11-07] MEDS: busPIRone 15 MG TAB PO SCH ×2 (09:00→20:06)
[2022-11-07] MEDS: dilTIAZem HCL 120 MG CAPCR PO SCH (09:00)
[2022-11-07] MEDS: DIVALPROEX DELAY RELEASE 500 MG TAB PO SCH ×2 (09:00→20:09)
[2022-11-07] MEDS: GABAPENTIN 300 MG CAP PO SCH ×2 (09:00→20:10)
[2022-11-07] MEDS: CETIRIZINE HCL 10 MG TABLET PO SCH (09:01)
[2022-11-07] MEDS: CARBIDOPA/LEVODOPA 50/200MG EXT REL TAB PO SCH ×2 (09:01→20:07)
[2022-11-07] MEDS: FAMOTIDINE 20 MG TAB PO SCH ×2 (09:01→20:10)
[2022-11-07] MEDS: ASPIRIN 81 MG CHEW PO SCH (09:01)
[2022-11-07] MEDS: clonazePAM 0.5 MG TAB PO SCH ×2 (09:06→20:09)
[2022-11-07] MEDS: LANTUS PER UNIT CHARGE SQ SCH ×2 (09:06→20:24)
[2022-11-07] MEDS: INSULIN ASPART PER UNIT SC SCH ×4 (09:06→20:25)
--- NOTE | 2022-11-07 10:35 | Urology Progress Note ---
Date of Service November 07, 2022 Assessment & Plan (1) Pyelonephritis: (2) S/P ureteral stent placement: Plan: - Pt POD#1 s/p cystoscopy and right ureteral stent placement with Dr. Balbuena. - Subjectively feeling better since ureteral stent placement. - Afebrile overnight, though she notes significant sweats multiple times. - Lab work reviewed - creatinine 0.68, WBC 4.83, Hgb 9.9 (10.9 on 11/05). - Urine and blood cultures showing E. coli. Operative kidney aspirate pending. - Continue IV Ceftriaxone - follow cultures. - Tolerating right ureteral stent with minimal bother. - Salazar catheter intact and draining clear yellow urine - likely dc catheter tomorrow. - Continue supportive care and antibiotics per medicine service. - Patient concerned about her drop in Hgb - passed her concerns on to her medicine team. - will follow. Admission and Anticipated Discharge Date Admission Date: November 04, 2022 Subjective Patient seen and examined at bedside this am. She reports generally feeling better today, less fatigue. She has intermittent right flank discomfort, relieved with prn morphine. She notes sweats overnight requiring bedding changes. Reports intermittent nausea, increased reflux and diarrhea. No vomiting. Salazar catheter intact and draining clear urine. She notes some dysuria and sensation of urgency. She expresses concern about her hgb decreasing since arrival in the setting of her hx of AML. Review of Systems Constitutional: as per Subjective / HPI Gastrointestinal: as per Subjective / HPI Genitourinary: as per Subjective / HPI Physical Exam Constitutional: well developed and well nourished; no acute distress Eyes: no scleral abnormality Respiratory: normal respiratory effort; no respiratory distress and no labored breathing Gastrointestinal (Abdomen): Inspection/Auscultation: abdomen normal to inspection; abdomen not distended Musculoskeletal: Head/Neck/Chest: normocephalic and head atraumatic Neurologic: moves all extremities and awake Psychiatric: Orientation: alert and oriented x 3 Genitourinary: Salazar intact and draining clear yellow urine Results & Data ([facility]) Vital Signs (Past 12 Hours) Vital Signs Temp Pulse Resp BP Pulse Ox O2 Del Method O2 Flow Rate 11/07/22 07:57 Nasal Cannula, CPAP 2 11/07/22 07:15 36.7 C 69 16 104/65 97 Room Air 11/06/22 22:48 36.7 C 62 20 110/67 94 Room Air PG Care Time/CCT Total # of Minutes Spent Total Time Spent with Patient: Total time spent is greater than 50% in coordination of care (as documented) at patient's floor/unit and/or counseling patient: Coding Level of Care Code 18721 SUB INP/OBS CARE 11/02MIN Diagnoses Pyelonephritis N12 S/P ureteral stent placement Z96.0
[2022-11-07] MEDS ORDERED: PHENAZOPYRIDINE HCL 200 MG TAB PO PRN (14:05)
[2022-11-07] MEDS ORDERED: PHENAZOPYRIDINE HCL 200 MG TAB PO STA (14:05)
--- NOTE | 2022-11-07 14:11 | Hospitalist Progress Note ---
Date of Service November 07, 2022 Assessment & Plan (1) Pyelonephritis: Plan: Uro-Sepsis POA complicated by bacteremia with E. Coli 56-year-old female with history of congenital ureteral stricture, prior kidney stones presenting with several days of progressive right flank pain, increased urinary frequency/urgency dysuria and hematuria with passage of clots. Patient is hemodynamically stable, Hgb = 13.5, HCT = 39.1. Urinalysis suggestive of infection with 3+ blood present. CT of the abdomen with right perinephric stranding, hydroureteronephrosis concerning for possible pyelonephritis. No stones visualized per stat rad read. Admit to medical Place [place] catheter to monitor output Ceftriaxone 2 g IV daily IV fluids with LR at 100 mL/h x 2 L Morphine as needed for pain Bowel regimen as needed Zofran as needed for nausea Urology consultation appreciated S/P ureteral stent Patient is improving. No longer having fevers and is feeling much better. _patient continues to have dysuria with greenwood ctahter. will order pyrdium on 11/07 and will remove greenwood cathter -Due to her dysuria, night sweats, and slow improvement. Will monitor overnight with plan to discharge after AM dose of IV ceftriaxone. (2) Hematuria: Plan: as above. urine now clear (3) Hydronephrosis: Plan: As above, suspect UTI/pyelonephritis. No stones noted on imaging. Management with IV antibiotics, pain control, antiemetics as above Urology consultation appreciated -concern she may not be draining and may require a ureteral stent. (4) Seizure disorder: Plan: Well-controlled on home medications Continue Depakote at home [id number] mg in the morning and 1000 mg at bedtime Continue Klonopin (5) Type 2 diabetes mellitus, with long-term current use of insulin: Plan: Overall well controlled. Last hemoglobin A1c on 03/11/2022 = 6.6. Blood sugar mildly elevated today at 176 Lantus 5 units twice daily Insulin sliding scale Hold home medications Repeat hemoglobin A1c with a.m. labs (6) JASON on CPAP: Plan: Chronic. Patient is compliant with her CPAP 3 L of oxygen nightly CPAP nightly with 3 L oxygen (7) GERD (gastroesophageal reflux disease): Plan: Chronic. Well-controlled with home medications Continue Pepcid 20 mg p.o. twice daily Continue Prevacid (8) Depression: Plan: Chronic. Stable. Continue buspirone (9) RLS (restless legs syndrome): Plan: Chronic. Patient follows with neurology. Continue gabapentin Continue Sinemet Fall precautions Admission and Anticipated Discharge Date Admission Date: November 04, 2022 Subjective 56 yo female reports feeling fatigued today. Her main complaint was night sweats, diarrhea, and dysuria. She is requesting to stay the night. Review of Systems Review of Systems: All systems reviewed & are unremarkable except as noted in HPI & below Physical Exam Physical Exam: General: patient resting comfortably, NAD, non-toxic in appearance, AA&O x 4 Skin: warm, dry, intact, no rashes or lesions HEENT: NC/AT, PERRL, EOMI, anicteric sclera, conjunctiva without injection, external ear normal to inspection and nontender, nares patent, moist mucus membranes, dentition intact, no oropharyngeal lesions, neck supple, trachea midline, no LAD, no thyromegaly, no JVD Heart: +S1/S2, regular, no m/r/g Lungs: equal air entry bilaterally, no rales/rhonchi/wheezes Abd: +BS, soft, NT/ND, no masses/organomegaly/ascites, right flank pain, mild suprapubic tenderness Ext: warm, 2+ pulses in UE/LE bilaterally, no clubbing/cyanosis or edema Neuro: nonfocal, patient AA&O x 4, speech intact, no facial droop, moving all extremities on command with equal strength 5/5 Results & Data Results & Data ([facility]) Vital Signs (Past 12 Hours) Vital Signs Temp Pulse Resp BP Pulse Ox O2 Del Method O2 Flow Rate 11/07/22 07:57 Nasal Cannula, CPAP 2 11/07/22 07:15 36.7 C 69 16 104/65 97 Room Air PG Care Time/CCT Total # of Minutes Spent Total Time Spent with Patient: Total time spent is greater than 50% in coordination of care (as documented) at patient's floor/unit and/or counseling patient: Coding Level of Care Code 06186 SUB INP/OBS CARE 3/50MIN Diagnoses Pyelonephritis N12 Hematuria R31.9 Hydronephrosis N13.30 Seizure disorder G40.909 Type 2 diabetes mellitus, with long-term current use of insulin E11.9; Z79.4 JASON on CPAP G47.33; Z99.89 GERD (gastroesophageal reflux disease) K21.9 Depression F32.9 RLS (restless legs syndrome) G25.81 Time Spent (min) 50
[2022-11-08] MEDS: cefTRIAXone SODIUM 2,000 MG in DEXTROSE 5% 50 ML IV SCH (02:23)
--- NOTE | 2022-11-08 07:25 | Urology Progress Note ---
Date of Service November 08, 2022 Assessment & Plan (1) S/P ureteral stent placement: (2) Pyelonephritis: (3) Hydronephrosis: Plan Koki is doing well this morning s/p right ureteral stent placement. Not measuring any fevers. No plan for further urologic intervention while inkaien t. Would recommend treating infection based on cultures, likely 10 to 14 days of oral antibiotics once she is discharged. Urology will coordinate outpatient follow-up. Urology will sign off for now, please call with any questions or concerns Admission and Anticipated Discharge Date Admission Date: November 04, 2022 Subjective Feeling okay this morning Reporting subjective fevers but none measured Denies any pain from the stent Catheter was removed and she is voiding well Blood cultures from 11/04 with E. coli, intraoperative urine culture (11/06) with no growth. Remains on ceftriaxone Physical Exam Physical Exam: Well-appearing, NAD Respiratory: Using CPAP Results & Data ([facility]) Vital Signs (Past 12 Hours) Vital Signs Temp Pulse Resp BP Pulse Ox O2 Del Method O2 Flow Rate 11/07/22 20:05 Room Air, Nasal Cannula, CPAP 2 11/07/22 22:57 36.7 C 56 L 20 116/79 97 Nasal Cannula 2 PG Care Time/CCT Total # of Minutes Spent Total Time Spent with Patient: Total time spent is greater than 50% in coordination of care (as documented) at patient's floor/unit and/or counseling patient: Coding Level of Care Code 88286 SUB INP/OBS CARE 1/25MIN Diagnoses S/P ureteral stent placement Z96.0 Pyelonephritis N12 Hydronephrosis N13.30
[2022-11-08 08:04] LABS: Hematocrit (blood only) 32.6 % (37.0-47.0); Hemoglobin 11.1 g/dl (12.0-16.0); Mean Corpuscular Hemoglobin 32.2 pg (25.0-34.0); Mean Corpuscular Volume 94.5 fL (80.0-100.0); Mean Platelet Volume 9.7 fL (9.4-12.4); Platelet Count 213 K/uL (130-400); RDW Coefficient of Variation 11.8 % (11.5-14.5); RDW Standard Deviation 40.1 fL (36.4-46.3); Red Blood Count 3.45 M/uL (4.20-5.40); White Blood Count 4.46 K/ul (4.8-10.8)
[2022-11-08 08:26] LABS: BUN Creatinine Ratio 20.9 (10-20); C Reactive Protein 2.7 mg/dl (0-0.5); Calcium 8.9 mg/dl (8.5-10.1); Creatinine Clr Calc Pharmacy 100.6 ml/min; Est GFR (African American) 112.3 ml/min; Est GFR (Non-African American) 96.9 ml/min; Potassium 4.1 mmol/L (3.5-5.1)
[2022-11-08] MEDS: FAMOTIDINE 20 MG TAB PO SCH (09:20)
[2022-11-08] MEDS: DIVALPROEX DELAY RELEASE 500 MG TAB PO SCH (09:20)
[2022-11-08] MEDS: GABAPENTIN 300 MG CAP PO SCH (09:20)
[2022-11-08] MEDS: dilTIAZem HCL 120 MG CAPCR PO SCH (09:20)
[2022-11-08] MEDS: ASPIRIN 81 MG CHEW PO SCH (09:21)
[2022-11-08] MEDS: busPIRone 15 MG TAB PO SCH (09:21)
[2022-11-08] MEDS: CETIRIZINE HCL 10 MG TABLET PO SCH (09:21)
[2022-11-08] MEDS: CARBIDOPA/LEVODOPA 50/200MG EXT REL TAB PO SCH (09:21)
[2022-11-08] MEDS: INSULIN ASPART PER UNIT SC SCH ×3 (09:22→17:46)
[2022-11-08] MEDS: LANTUS PER UNIT CHARGE SQ SCH (09:23)
[2022-11-08] MEDS: clonazePAM 0.5 MG TAB PO SCH (09:26)
[2022-11-08] MEDS: ACETAMINOPHEN 325 MG TAB PO PRN (09:33)
--- NOTE | 2022-11-08 14:53 | Discharge Summary ---
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 She has also been noticing blood in her urine including the passage of blood clots and the sensation of incomplete bladder emptying. Her symptoms have been ongoing for the last several days. Also with right flank pain and back pain. Patient also describes subjective fevers and shakes. Patient works as an fund accountant and reports that she has been very busy recently with tax season upcoming. She has had a difficult time performing her duties at work due to her urinary frequency, dysuria and incontinence. She denies chest pain, cough, has stable shortness of breath at baseline which is unchanged. Denies abdominal pain but does feel some abdominal fullness as well as rectal pressure. Denies nausea/vomiting/diarrhea or constipation. She has not been drinking a lot over the last several days because she does not want to urinate. In the ER she is afebrile, mildly tachycardic with heart rate of 105, blood pressure stable, no respiratory distress. Adequate oxygenation on room air Work-up as below suggestive of UTI with hematuria present. CT of the abdomen performed with no stones. Does comment on hydro ureter nephrosis on the right concerning for possible pyelonephritis. ER course: Ceftriaxone x1 g orderednot yet administered Normal saline x1 L Morphine x4 mg IV Prevacid 30 mg SoluTab orderednot yet administered Principal Diagnosis pyelonephritis Discharge Exam General: patient resting comfortably, NAD, non-toxic in appearance, AA&O x 4 Skin: warm, dry, intact, no rashes or lesions HEENT: NC/AT, PERRL, EOMI, anicteric sclera, conjunctiva without injection, external ear normal to inspection and nontender, nares patent, moist mucus membranes, dentition intact, no oropharyngeal lesions, neck supple, trachea midline, no LAD, no thyromegaly, no JVD Heart: +S1/S2, regular, no m/r/g Lungs: equal air entry bilaterally, no rales/rhonchi/wheezes Abd: +BS, soft, NT/ND, no masses/organomegaly/ascites, right flank pain, mild suprapubic tenderness Ext: warm, 2+ pulses in UE/LE bilaterally, no clubbing/cyanosis or edema Neuro: nonfocal, patient AA&O x 4, speech intact, no facial droop, moving all extremities on command with equal strength 5/5 Discharge Data Allergies Allergy/AdvReac Type Severity Reaction Status Date / Time bee venom protein (honey bee) Allergy Severe all Verified 11/03/22 21:55 stinging insects - Anaphylaxis benzonatate Allergy Severe Anaphylaxis Verified 11/03/22 21:55 cephalexin [From Keflex] Allergy Severe Rash Verified 11/03/22 21:55 fish derived Allergy Severe RESP Verified 11/03/22 21:55 DISTRESS glimepiride Allergy Severe CAN'T Verified 11/03/22 21:55 REMEMBER, ONLY REMEMBER SEVERE Iodinated Contrast Media Allergy Severe Difficulty Verified 11/03/22 21:55 Breathing Penicillins Allergy Severe Hives Verified 11/03/22 21:55 chlorhexidine Allergy Intermediate Blister Verified 11/04/22 00:49 isopropyl alcohol Allergy Intermediate Blister Verified 11/04/22 00:49 metoclopramide Allergy Intermediate HIVES, RASH Verified 11/03/22 21:55 metronidazole Allergy Intermediate Rash Verified 11/03/22 21:55 sucralfate Allergy Intermediate HIVES, RASH Verified 11/03/22 21:55 Sulfa (Sulfonamide Allergy Intermediate Hives Verified 11/03/22 21:55 Antibiotics) trimethoprim Allergy Intermediate Hives Verified 11/03/22 21:55 adhesive tape Allergy Mild Rash Verified 11/03/22 21:55 doxepin Allergy Mild Rash Verified 11/03/22 21:55 norfloxacin Allergy Mild Rash Verified 11/03/22 21:55 cefadroxil Allergy Unknown Unknown Verified 11/03/22 21:55 Phenothiazines Allergy Unknown Unknown Verified 11/03/22 21:55 prochlorperazine Allergy Unknown Unknown Verified 11/03/22 21:55 [From Compazine] trazodone Allergy Unknown CAN'T Verified 11/03/22 21:55 REMEMBER diclofenac AdvReac Severe CAUSED A Verified 11/03/22 21:55 SEIZURE propofol AdvReac Severe agitated, Verified 11/03/22 21:55 combative, somnolent, hallucination tetracycline AdvReac Severe Abdominal Verified 11/03/22 21:55 Pain erythromycin base AdvReac Intermediate HEARING Verified 11/03/22 21:55 LOSS fentanyl AdvReac Intermediate depression Verified 11/03/22 21:55 meperidine [From Demerol] AdvReac Intermediate HALLUCINATI Verified 11/03/22 21:55 ONS metformin AdvReac Intermediate JITTERY Verified 11/03/22 21:55 ropinirole AdvReac Intermediate HALLUCINATI Verified 11/03/22 21:55 ONS Consultations 11/03/22 23:55 Consult Urology Routine 11/04/22 00:02 ED Decision to Admit Stat Procedures Performed Operation Date: 11/06/22 07:45 Actual Procedures p Cystoscopy with Ureteral Stent Insertion Right(Right) - Maximino Balbuena MD Ordered Studies 11/03/22 21:54 CT abd pelvis wo con Urgent 11/06/22 07:00 FL KUB Routine Hospital Course (1) Pyelonephritis: Sepsis POA complicated by bacteremia with E. Coli 56-year-old female with history of congenital ureteral stricture, prior kidney stones presenting with several days of progressive right flank pain, increased urinary frequency/urgency dysuria and hematuria with passage of clots. Patient is hemodynamically stable, Hgb = 13.5, HCT = 39.1. Urinalysis suggestive of infection with 3+ blood present. CT of the abdomen with right perinephric stranding, hydroureteronephrosis concerning for possible pyelonephritis. No stones visualized per stat rad read. Admit to medical Place Salazar catheter to monitor output Ceftriaxone 2 g IV daily IV fluids with LR at 100 mL/h x 2 L Morphine as needed for pain Bowel regimen as needed Zofran as needed for nausea Urology consultation appreciated S/P ureteral stent Patient is improving. No longer having fevers and is feeling much better. Salazar catheter removed, urinary symptoms have improved will order pyridium at discharge. -will complete 14 days of antibiotics after procedure. Patient will be discharged on cefdinir (2) Hematuria: as above. urine now clear (3) Hydronephrosis: As above, suspect UTI/pyelonephritis. No stones noted on imaging. Management with IV antibiotics, pain control, antiemetics as above Urology consultation appreciated -s/p ureteral stent (4) Seizure disorder: Well-controlled on home medications Continue Depakote at home [id number] mg in the morning and 1000 mg at bedtime Continue Klonopin (5) Type 2 diabetes mellitus, with long-term current use of insulin: Overall well controlled. Last hemoglobin A1c on 03/11/2022 = 6.6. Blood sugar mildly elevated today at 176 Lantus 5 units twice daily Insulin sliding scale Hold home medications (6) JASON on CPAP: Chronic. Patient is compliant with her CPAP 3 L of oxygen nightly CPAP nightly with 3 L oxygen (7) GERD (gastroesophageal reflux disease): Chronic. Well-controlled with home medications Continue Pepcid 20 mg p.o. twice daily Continue Prevacid (8) Depression: Chronic. Stable. Continue buspirone (9) RLS (restless legs syndrome): Chronic. Patient follows with neurology. Continue gabapentin Continue Sinemet Fall precautions Total Time Total Time Spent Total Time Spent (In Minutes): 32 Discharge Plan Discharge Items Patient Disposition: Home - Self-Care Reason For Visit: FLANK PAIN, HEMATURIA, PYELONEPHRITIS Discharge Diagnosis: Flank pain Activity: Resume your previous activity Non-emergency contact: Primary Care Provider Call non-emergency contact if: you have any medication questions Follow-up/Referrals: Kina Aguiar D.O. [Primary Care Provider] - Diet: Carb Consistent or DM2 Addtl Attending Provider Instructions: Continue with oral antibiotics until finished. Urology will set up followup with you. Please see PCP in 1-2 weeks. Pending Studies at Discharge: No Stand-Alone Forms: My Cuff-Protect, Smoking Cessation Medications and DC Order Prescriptions: New calcium carbonate [Tums] 200 mg calcium (500 mg) Tablet,Chewable 500 mg PO Q6H PRN (Reason: dyspepsia) Qty: 30 0RF phenazopyridine [Pyridium] 200 mg Tablet 200 mg PO TID PRN (Reason: urinary symptoms) Qty: 7 0RF cefdinir 300 mg capsule 300 mg PO BID 11 Days Qty: 23 0RF Rx Instructions: Take first dose this evening. tramadol 50 mg tablet 50 mg PO Q8H PRN (Reason: pain) Qty: 10 0RF ondansetron 4 mg tablet,disintegrating 4 mg PO Q8H PRN (Reason: nausea and vomiting) 4 Days Qty: 10 0RF Continued diltiazem HCl 120 mg capsule,extended release 24hr 120 mg PO QAM Qty: 90 3RF (DME) OneTouch Verio test strips Strip See Rx Instructions .ROUTE .MEDSUPPLY Qty: 200 0RF Rx Instructions: Test blood sugar 2 times daily clonazepam [Klonopin] 0.5 mg tablet 0.5 mg PO BID 30 Days Qty: 60 0RF aspirin 81 mg tablet,chewable 81 mg PO QAM nystatin 100,000 unit/gram powder 1 applic topical BID PRN (Reason: Skin Irritation) triamcinolone acetonide 0.1 % cream 1 applic topical BID PRN (Reason: Skin Irritation) divalproex [Depakote] 500 mg tablet,delayed release (DR/EC) 500 mg PO .COMPLEX Qty: 90 5RF Rx Instructions: 1 tab po in the morning and 2 tabs po at bedtime. gabapentin [Neurontin] 300 mg capsule 300 mg PO .COMPLEX Qty: 120 5RF Rx Instructions: 300 mg PO takes 300 mg in the morning and take 900 mg in the evening; cholecalciferol (vitamin D3) 25 mcg (1,000 unit) capsule 25 mcg PO QAM albuterol sulfate 90 mcg/actuation HFA aerosol inhaler 2 puff inhalation Q6H PRN (Reason: Shortness Of Breath) famotidine 20 mg tablet 20 mg PO BID buspirone 30 mg tablet 30 mg PO BID cetirizine 10 mg Tablet 10 mg PO QAM meclizine 12.5 mg Tablet 12.5 mg PO UD PRN (Reason: dizzy) lansoprazole [Prevacid] 30 mg capsule,delayed release(DR/EC) 30 mg PO BID nitroglycerin [Nitrostat] 0.4 mg Tablet, Sublingual 0.4 unit Sublingual UD PRN (Reason: Chest Pain) epinephrine [EpiPen] 0.3 mg/0.3 mL Auto-Injector 0.3 mg IM Q3H PRN (Reason: Allergic Reaction) dicyclomine 10 mg Capsule 10 mg PO QID PRN (Reason: IBS) cyclobenzaprine 10 mg Tablet 10 mg PO TID PRN (Reason: MUSCLE SPASMS) Cbd Gummies 1 tab PO HS PRN (Reason: Sleep) Tradjenta 5 mg tablet 5 mg PO QAM insulin lispro [Humalog KwikPen Insulin] 100 unit/mL Insulin Pen 1 sliding scale dose SUBCUT USEASDIRECTD carbidopa-levodopa 50-200 mg tablet extended release 1 tab PO BID Rx Instructions: TAKE ONE TABLET BY MOUTH TWO TIMES A DAY Nurtec ODT 75 mg tablet,disintegrating 75 mg PO DIRECTED Rx Instructions: May take every 48 hours po as needed for a migraine. ondansetron HCl 4 mg Tablet 4 mg PO Q8H PRN (Reason: NAUSEA/VOMITING) Qty: 30 0RF Discharge Orders: Discharge Order (Routine); Ordered 11/08/22 Ordered By: Abdias Luna/Other Patient Handouts: Managing Type 2 Diabetes Admission Data Admit Date/Time: 11/04/22 00:09 Attending Provider: Abdias Sung Admit Provider: Radha Simon Primary Care Provider: Kina Aguiar Other Providers: Kash Carranza ; Radha Simon Other Interventions: Discharge Summary Assessment (RN) Last Done: 11/08/22 17:48 Coding Level of Care Code HOSP INP/OBS DISCH >30 MIN Diagnoses Pyelonephritis N12 Hematuria R31.9 Hydronephrosis N13.30 Seizure disorder G40.909 Type 2 diabetes mellitus, with long-term current use of insulin E11.9; Z79.4 JASON on CPAP G47.33; Z99.89 GERD (gastroesophageal reflux disease) K21.9 Depression F32.9 RLS (restless legs syndrome) G25.81
[2022-11-08] MEDS: MoRPHine SULFATE 4 MG/ML 1 ML CARP\\VIAL IV PRN (14:57)
[2022-11-08] MEDS: ONDANSETRON INJ 2 MG/ML 2 ML VIAL IV PRN (14:57)
== END 2022-11-08 19:15 | disposition home or self-care (01) | DRG 854 ==
LOC: ED 19:51 → SUATTDRO 11-04 00:09 → 3N 11-04 00:09

== ENCOUNTER 2022-11-13 13:50 | Observation (INO) ==
[2022-11-13] MEDS ORDERED: MoRPHine SULFATE 4 MG/ML 1 ML CARP\\VIAL IV STA ×2 (14:06→16:09)
[2022-11-13] MEDS ORDERED: ONDANSETRON INJ 2 MG/ML 2 ML VIAL IV STA ×2 (14:06→16:09)
[2022-11-13 14:27] LABS: Basophils # (auto) 0.03 K/uL (0-0.2); Basophils % (auto) 0.5 %; Eosinophils # (auto) 0.18 K/uL (0-0.50); Hematocrit (blood only) 36.4 % (37.0-47.0); Hemoglobin 12.5 g/dl (12.0-16.0); Immature Granulocytes # (auto) 0.05 K/uL (0.01-0.20); Immature Granulocytes % (auto) 0.8 %; Lymphocytes # (auto) 1.21 K/uL (1.2-3.4); Lymphocytes % (auto) 20.1 %; Mean Corpuscular Hemoglobin 32.4 pg (25.0-34.0); Mean Corpuscular Hgb Conc 34.3 g/dL (32.0-36.0); Mean Corpuscular Volume 94.3 fL (80.0-100.0); Mean Platelet Volume 9.3 fL (9.4-12.4); Monocytes # (auto) 0.41 K/uL (0.11-0.59); Monocytes % (auto) 6.8 %; Neutrophils # (auto) 4.15 K/uL (1.40-6.50); Neutrophils % (auto) 68.8 %; Platelet Count 255 K/uL (130-400); RDW Coefficient of Variation 11.9 % (11.5-14.5); RDW Standard Deviation 39.8 fL (36.4-46.3); Red Blood Count 3.86 M/uL (4.20-5.40); White Blood Count 6.03 K/ul (4.8-10.8)
[2022-11-13 14:47] LABS: Albumin Level 3.8 gm/dl (3.4-5.0); BUN Creatinine Ratio 15.7 (10-20); Bilirubin,Total 0.3 mg/dl (0.2-1.0); Calcium 9.2 mg/dl (8.5-10.1); Creatinine Clr Calc Pharmacy 97.4 ml/min; Est GFR (African American) 110.7 ml/min; Est GFR (Non-African American) 95.5 ml/min; Potassium 4.8 mmol/L (3.5-5.1); Total Protein 6.9 gm/dl (6.0-8.3)
[2022-11-13] MEDS ORDERED: SODIUM CHLORIDE 0.9% 1000ML 2,000 ML IV ONE (14:55)
[2022-11-13 15:20] LABS: Appearance Urine Clear (Clear); Bacteria Urine Automated Negative (Negative); Bilirubin Urine Negative (Negative); Blood Urine 3+ (Negative); Color Urine Yellow; Epithelial Cell Urine Auto >30 /lpf (0-5); Glucose Urine UA 3+ (Negative); Ketones Urine Trace (Negative); Leukocyte Esterase Urine Negative (Negative); Nitrite Urine Negative (Negative); Protein Urine 2+ (Negative); RBC Urine Automated >30 /hpf (0-4); Specific Gravity Urine 1.028 (1.000-1.030); Urobilinogen Urine Negative (Negative); pH Urine 5.5 (4.5-7.5)
--- NOTE | 2022-11-13 15:48 | CT Scan Report ---
CT SCAN OF THE ABDOMEN AND PELVIS WITHOUT IV CONTRAST CLINICAL HISTORY: Flank pain. Fever. COMPARISON STUDY: Abdominal CT dated 11/03/2022. TECHNIQUE: CT scan of the abdomen and pelvis is performed from the lung bases to the proximal femora. Images are reviewed in the axial, sagittal, and coronal planes. IV contrast was not administered for this examination. A dose lowering technique was utilized adhering to the principles of ALARA. CT DOSE: 1088.75 mGy.cm FINDINGS: Lung bases: The heart is normal in size and without pericardial effusion. The lung bases are clear no ting bibasilar atelectasis. Liver: The unenhanced liver is normal in size, contour, and attenuation. There is no intrahepatic mary iary ductal dilatation. Gallbladder: Surgically absent noting clips in the gallbladder fossa. Spleen: Normal in size and attenuation. Pancreas: The unenhanced pancreas is moderately atrophic and grossly unremarkable. Adrenal glands: Unremarkable. Kidneys: The unenhanced kidneys are normal in size and without hydronephrosis. A right ureteral stent is in appropriate position. No calcifications are identified in the right ureter along the course of the stent. There is mild urothelial thickening within the right renal pelvis and the right ureter wi th surrounding infiltration. There are least 3 calcifications in the right lower pole which measure u p to 4 mm. No left renal calculi are identified and there is no left ureteral stone. There is no evid ence of contour deforming renal mass lesion. Abdominal vasculature: The abdominal aorta is normal in course and caliber noting moderate atheroscle rotic calcification. Bowel: There are scattered colonic diverticula without CT evidence of acute diverticulitis. No bowel obstruction is seen. Mild fecal retention is noted throughout the colon. The appendix is well-visual ized and normal. Peritoneum: There is no intraperitoneal free air or abdominal ascites. Lymphadenopathy: None. Pelvic viscera: The bladder is normal as visualized, and contains the distal end of a right ureteral stent. The uterus is surgically absent. No adnexal lesion is seen. Skeletal structures: The skeletal structures are osteopenic. No lytic or blastic lesions are seen. Th ere is mild lumbosacral spondylosis. IMPRESSION: 1. A right ureteral stent is in appropriate position. No calcifications are seen in the right ureter along the course of the stent and there is no hydronephrosis. 2. Urothelial thickening is seen in the right renal pelvis and along the course of the right ureter w ith mild surrounding infiltration. This may be related to the presence of an indwelling stent. Correl ate with clinical findings and urinalysis for evidence of superimposed infection. 3. Right lower pole calcifications are similar to previous. 4. Additional findings as above. ACT 112: Negative or not required by law. Electronically signed by: Edilberto Bermudez M.D. 11/13/2022 3:46 PM
--- NOTE | 2022-11-13 16:32 | Emergency Department Note ---
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 CT of the abdomen pelvis shows that the right ureteral stent is in appropriate position and that there is urothelial thickening of the right renal pelvis along the course of the right ureter with right mild surrounding infiltration which may be related to the presence of an indwelling stent or superimposed infection. Patient has required multiple dose of analgesia in the emergency department states she is still having pain. Discussed case with urology Dr. Rios who agrees to be on consult. Dr. Rios states that if the patient can tolerate it she can have Toradol for pain and if pain is too much a Salazar can be placed and the patient can be started on some steroids. Patient's antibiotics will be switched from cefdinir to ciprofloxacin. Cipro IV piggyback ordered for the patient. Discussed the case with Dr. Sneed [facility] hospitalist team will evaluate the patient for admission to his service. Impression & Plan Pyelonephritis Discharge Plan Visit Data Chief Complaint: Abdominal Pain Stated Complaint: ABDOMINAL PAIN ED Provider: Michael Coombs Discharge Problem: Pyelonephritis Patient Disposition: Admitted As Inpatient Forms Stand Alone Forms: [facility] Prescriptions Prescriptions: No Action diltiazem HCl 120 mg capsule,extended release 24hr 120 mg PO QAM Qty: 90 3RF (DME) OneTouch Verio test strips Strip See Rx Instructions .ROUTE .MEDSUPPLY Qty: 200 0RF Rx Instructions: Test blood sugar 2 times daily clonazepam [Klonopin] 0.5 mg tablet 0.5 mg PO BID 30 Days Qty: 60 0RF aspirin 81 mg tablet,chewable 81 mg PO QAM nystatin 100,000 unit/gram powder 1 applic topical BID PRN (Reason: Skin Irritation) triamcinolone acetonide 0.1 % cream 1 applic topical BID PRN (Reason: Skin Irritation) divalproex [Depakote] 500 mg tablet,delayed release (DR/EC) 500 mg PO .COMPLEX Qty: 90 5RF Rx Instructions: 1 tab po in the morning and 2 tabs po at bedtime. gabapentin [Neurontin] 300 mg capsule 300 mg PO .COMPLEX Qty: 120 5RF Rx Instructions: 300 mg PO takes 300 mg in the morning and take 900 mg in the evening; cholecalciferol (vitamin D3) 25 mcg (1,000 unit) capsule 25 mcg PO QAM albuterol sulfate 90 mcg/actuation HFA aerosol inhaler 2 puff inhalation Q6H PRN (Reason: Shortness Of Breath) famotidine 20 mg tablet 20 mg PO BID buspirone 30 mg tablet 30 mg PO BID cetirizine 10 mg Tablet 10 mg PO QAM meclizine 12.5 mg Tablet 12.5 mg PO UD PRN (Reason: dizzy) lansoprazole [Prevacid] 30 mg capsule,delayed release(DR/EC) 30 mg PO BID nitroglycerin [Nitrostat] 0.4 mg Tablet, Sublingual 0.4 unit Sublingual UD PRN (Reason: Chest Pain) epinephrine [EpiPen] 0.3 mg/0.3 mL Auto-Injector 0.3 mg IM Q3H PRN (Reason: Allergic Reaction) dicyclomine 10 mg Capsule 10 mg PO QID PRN (Reason: IBS) cyclobenzaprine 10 mg Tablet 10 mg PO TID PRN (Reason: MUSCLE SPASMS) Cbd Gummies 1 tab PO HS PRN (Reason: Sleep) Tradjenta 5 mg tablet 5 mg PO QAM insulin lispro [Humalog KwikPen Insulin] 100 unit/mL Insulin Pen 1 sliding scale dose SUBCUT USEASDIRECTD carbidopa-levodopa 50-200 mg tablet extended release 1 tab PO BID Rx Instructions: TAKE ONE TABLET BY MOUTH TWO TIMES A DAY Nurtec ODT 75 mg tablet,disintegrating 75 mg PO DIRECTED Rx Instructions: May take every 48 hours po as needed for a migraine. calcium carbonate [Tums] 200 mg calcium (500 mg) Tablet,Chewable 500 mg PO Q6H PRN (Reason: dyspepsia) Qty: 30 0RF phenazopyridine [Pyridium] 200 mg Tablet 200 mg PO TID PRN (Reason: urinary symptoms) Qty: 7 0RF cefdinir 300 mg capsule 300 mg PO BID 11 Days Qty: 23 0RF Rx Instructions: Take first dose this evening. tramadol 50 mg tablet 50 mg PO Q8H PRN (Reason: pain) Qty: 10 0RF ondansetron HCl 4 mg Tablet 4 mg PO Q8H PRN (Reason: NAUSEA/VOMITING) Qty: 30 0RF clotrimazole 1 % Cream TOPICAL BID Rx Instructions: Apply to affected area twice daily for seven days Referrals Referrals: Kina Aguiar D.O. [Primary Care Provider] -
[2022-11-13] MEDS ORDERED: CIPROFLOXACIN / D5W 400 MG/200 ML BAG IV STA (16:56)
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
[2022-11-13] MEDS ORDERED: diphenhydrAMINE 50 MG/ML VIAL IV STA (17:14)
[2022-11-13] MEDS ORDERED: diphenhydrAMINE 50 MG/ML VIAL ONE (17:16)
[2022-11-13] MEDS ORDERED: CARBOHYDRATES FOR HYPOGLYCEMIA PO PRN (17:45)
[2022-11-13] MEDS ORDERED: GLUCOSE 40% GEL 15 GM TUBE PO PRN (17:45)
[2022-11-13] MEDS ORDERED: GLUCAGON FOR INJ 1 MG VIAL SQ PRN (17:45)
[2022-11-13] MEDS ORDERED: DEXTROSE 50% 50 ML SYRINGE IV PRN (17:45)
[2022-11-13] MEDS ORDERED: GLUCOSE 10 TAB/TUBE PO PRN (17:45)
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
[2022-11-13] MEDS ORDERED: ACETAMINOPHEN 325 MG TAB PO PRN (20:59)
[2022-11-13] MEDS ORDERED: POLYETHYLENE (MIRALAX) 17 GM PACK PO PRN (20:59)
[2022-11-13] MEDS ORDERED: traMADol HCL 50 MG TABLET PO PRN (20:59)
[2022-11-13] MEDS ORDERED: KETOROLAC TROMETHAMINE 15 MG/ML VIAL IV PRN (20:59)
[2022-11-13] MEDS ORDERED: MECLIZINE 12.5 MG TAB PO PRN (20:59)
[2022-11-13] MEDS ORDERED: MoRPHine SULFATE 2 MG/ML CARP IV PRN (20:59)
[2022-11-13] MEDS ORDERED: CYCLOBENZAPRINE HCL 10 MG TAB PO PRN (20:59)
[2022-11-13] MEDS: ONDANSETRON INJ 2 MG/ML 2 ML VIAL IV PRN (21:47)
[2022-11-13] MEDS: busPIRone 15 MG TAB PO SCH (21:47)
[2022-11-13] MEDS: CARBIDOPA/LEVODOPA 50/200MG EXT REL TAB PO SCH (21:48)
[2022-11-13] MEDS ORDERED: cefTRIAXone SODIUM 2,000 MG in DEXTROSE 5% 50 ML IV SCH (22:00)
[2022-11-13] MEDS ORDERED: DIVALPROEX DELAY RELEASE 500 MG TAB PO SCH (22:00)
[2022-11-13] MEDS ORDERED: GABAPENTIN 300 MG CAP PO SCH (22:00)
[2022-11-13] MEDS: LANTUS PER UNIT CHARGE SQ SCH (22:21)
[2022-11-13] MEDS: clonazePAM 0.5 MG TAB PO SCH (22:21)
[2022-11-13] MEDS: INSULIN ASPART PER UNIT SC SCH (22:22)
[2022-11-13] MEDS: FAMOTIDINE 20 MG TAB PO SCH (22:30)
[2022-11-14 06:13] LABS: Basophils # (auto) 0.02 K/uL (0-0.2); Basophils % (auto) 0.3 %; Eosinophils # (auto) 0.27 K/uL (0-0.50); Eosinophils % (auto) 4.6 %; Hematocrit (blood only) 33.5 % (37.0-47.0); Hemoglobin 11.1 g/dl (12.0-16.0); Immature Granulocytes # (auto) 0.05 K/uL (0.01-0.20); Immature Granulocytes % (auto) 0.9 %; Lymphocytes # (auto) 1.82 K/uL (1.2-3.4); Lymphocytes % (auto) 31.3 %; Mean Corpuscular Hgb Conc 33.1 g/dL (32.0-36.0); Mean Corpuscular Volume 96.5 fL (80.0-100.0); Mean Platelet Volume 9.2 fL (9.4-12.4); Monocytes # (auto) 0.48 K/uL (0.11-0.59); Monocytes % (auto) 8.2 %; Neutrophils # (auto) 3.18 K/uL (1.40-6.50); Neutrophils % (auto) 54.7 %; Platelet Count 221 K/uL (130-400); RDW Coefficient of Variation 12.3 % (11.5-14.5); RDW Standard Deviation 42.3 fL (36.4-46.3); Red Blood Count 3.47 M/uL (4.20-5.40); White Blood Count 5.82 K/ul (4.8-10.8)
[2022-11-14] MEDS: INSULIN ASPART PER UNIT SC SCH ×2 (06:20→12:35)
[2022-11-14 06:32] LABS: BUN Creatinine Ratio 9.2 (10-20); Calcium 8.5 mg/dl (8.5-10.1); Creatinine Clr Calc Pharmacy 90.1 ml/min; Est GFR (African American) 100.2 ml/min; Est GFR (Non-African American) 86.5 ml/min; Potassium 4.6 mmol/L (3.5-5.1)
[2022-11-14] MEDS: ONDANSETRON INJ 2 MG/ML 2 ML VIAL IV PRN (07:41)
[2022-11-14] MEDS ORDERED: DIVALPROEX DELAY RELEASE 500 MG TAB PO SCH (09:00)
[2022-11-14] MEDS ORDERED: GABAPENTIN 300 MG CAP PO SCH (09:00)
[2022-11-14] MEDS ORDERED: dilTIAZem HCL 120 MG CAPCR PO SCH (09:00)
--- NOTE | 2022-11-14 09:15 | Urology Progress Note ---
Date of Service November 14, 2022 Assessment & Plan (1) Pyelonephritis: (2) Right flank pain: (3) S/P ureteral stent placement: Plan 56yo/F with hx of right pyeloplasty in childhoodrecently hospitalized for pyelonephritis and right hydronephrosis and is s/p right stent placement on 11/06. She returned to the ED with ill-feelings and pain and was admitted for right flank/abdominal pain and suspected UTI/pyelonephritis. -CT shows the right ureteral stent in appropriate position, no stones along the course of the stent, no hydronephrosis, urothelial thickening in the right renal pelvis and along the course of the right ureter with mild surrounding infiltration. -Pt afebrile and hemodynamically stable. -Labs reviewed-no leukocytosis, normal renal function. -UA with >30RBC, >30Epi, negative bacteria, negative nitrite. -On Ceftriaxone. Follow cultures and tailor as data becomes available. -Voiding spontaneously, continue to monitor. Bladder scan prn. -No plan for urological intervention at this time. Ok for diet from standpoint. -At the present time we recommend keeping the stent in place for now as the patient had a history of pyeloplasty with recent hydronephrosis and pyelonephritis with ongoing concern for infection. -She is scheduled for stent removal on 11/24/22, will plan to keep as scheduled for now. -Continue supportive care and antibiotic therapy. -Can consider Flomax, prn Pyridium, prn Oxybutynin for stent discomfort. -Urology will follow. Case discussed with Dr. Carranza, on-call urologist. Admission and Anticipated Discharge Date Admission Date: November 13, 2022 Subjective Patient examined at bedside this AM. Awake, resting in bed on arrival. No acute distress. Still with right-sided flank and abdominal pain. Voiding without issue, notes some dysuria. No hematuria. Denies fevers but reports having some chills. No nausea or vomiting. Has been NPO. Review of Systems Constitutional: as per Subjective / HPI Gastrointestinal: as per Subjective / HPI Genitourinary: as per Subjective / HPI Physical Exam Constitutional: WD/WN, vitals as above no acute distress Respiratory: no respiratory distress and no labored breathing Gastrointestinal (Abdomen): Right sided pain with palpation Musculoskeletal: Head/Neck/Chest: normocephalic Skin: No visible rashes or lesions to exposed skin areas Neurologic: awake Psychiatric: A+Ox3, euthymic affect Results & Data ([facility]) Vital Signs (Past 12 Hours) Vital Signs Temp Pulse Pulse Resp BP BP Pulse Ox 11/14/22 07:17 36.5 C 74 18 102/69 97 11/14/22 02:55 12 100 11/14/22 01:20 36.6 C 68 18 110/68 99 11/14/22 00:05 69 22 99 O2 Del Method O2 Flow Rate 11/14/22 07:17 Nasal Cannula 2 11/14/22 02:55 3 11/14/22 01:20 Nasal Cannula, CPAP 3 11/14/22 00:05 3 PG Care Time/CCT Total # of Minutes Spent Total Time Spent with Patient: Total time spent is greater than 50% in coordination of care (as documented) at patient's floor/unit and/or counseling patient: Coding Level of Care Code 38240 SUB INP/OBS CARE 2/35MIN Diagnoses Pyelonephritis N12 Right flank pain R10.9 S/P ureteral stent placement Z96.0
[2022-11-14] MEDS: busPIRone 15 MG TAB PO SCH (09:42)
[2022-11-14] MEDS: clonazePAM 0.5 MG TAB PO SCH (09:42)
[2022-11-14] MEDS: CARBIDOPA/LEVODOPA 50/200MG EXT REL TAB PO SCH (09:42)
[2022-11-14] MEDS: FAMOTIDINE 20 MG TAB PO SCH (09:42)
[2022-11-14] MEDS: LANTUS PER UNIT CHARGE SQ SCH (09:55)
--- NOTE | 2022-11-14 12:55 | Discharge Summary ---
Date of Service November 14, 2022 Admission HPI Per Admitting Provider Koki is a 56-year-old female with a past medical history of congenital right ureteral stricture, hematuria, type II DM, seizure disorder with recent admission from 11/04/2022 - 11/08/2022 who was discharged after an admission for urinary frequency, urgency, hematuria and was treated for pyelonephritis with placement of a ureteral stent. She was discharged to complete 14 days of antibiotics with cefdinir and Pyridium with outpatient follow-up to urology. She represents to the emergency department with abdominal pain. Koki is seen at bedside. Was recently discharged after a compliated UTI. She reports at that time her urine was burnign like crazy. After the stent was palced felt much better, but then improvement levelled off. After being discharged felt she did not improve any further. Last day of antibiotics was going to be through 11/20/22. PCP Kina Shields, recommended being seen in ER. Has not been burning with urination. Had some red blood on tissue paper, and s/p hysterectomy in Has had blood in tissue without BMs while urinating. +Nausea, no vomiting Last BM was this morning and was dark brown, not black/blood Has continued to have night sweats Mild sore throat last few days, no cough, shortness of breath Principal Diagnosis Abdominal pain - suspect due to right ureteral stent Discharge Exam GENERAL: 56 yo Well-developed, obese WF. NAD. LUNGS: Diminished throughout but clear CARDIOVASCULAR: Regular rate and rhythm. ABDOMEN: Soft, non-tender and non-distended. Bs normoactive x 4 quad. : mild cva tenderness on R, none on L Discharge Data Allergies Allergy/AdvReac Type Severity Reaction Status Date / Time bee venom protein (honey bee) Allergy Severe all Verified 11/13/22 18:36 stinging insects - Anaphylaxis benzonatate Allergy Severe Anaphylaxis Verified 11/13/22 18:36 cephalexin [From Keflex] Allergy Severe Rash Verified 11/13/22 18:36 fish derived Allergy Severe RESP Verified 11/13/22 18:36 DISTRESS glimepiride Allergy Severe CAN'T Verified 11/13/22 18:36 REMEMBER, ONLY REMEMBER SEVERE Iodinated Contrast Media Allergy Severe Difficulty Verified 11/13/22 18:36 Breathing Penicillins Allergy Severe Hives Verified 11/13/22 18:36 chlorhexidine Allergy Intermediate Blister Verified 11/13/22 18:36 isopropyl alcohol Allergy Intermediate Blister Verified 11/13/22 18:36 metoclopramide Allergy Intermediate HIVES, RASH Verified 11/13/22 18:36 metronidazole Allergy Intermediate Rash Verified 11/13/22 18:36 sucralfate Allergy Intermediate HIVES, RASH Verified 11/13/22 18:36 Sulfa (Sulfonamide Allergy Intermediate Hives Verified 11/13/22 18:36 Antibiotics) trimethoprim Allergy Intermediate Hives Verified 11/13/22 18:36 adhesive tape Allergy Mild Rash Verified 11/13/22 18:36 doxepin Allergy Mild Rash Verified 11/13/22 18:36 norfloxacin Allergy Mild Rash Verified 11/13/22 18:36 cefadroxil Allergy Unknown Unknown Verified 11/13/22 18:36 Phenothiazines Allergy Unknown Unknown Verified 11/13/22 18:36 prochlorperazine Allergy Unknown Unknown Verified 11/13/22 18:36 [From Compazine] trazodone Allergy Unknown CAN'T Verified 11/13/22 18:36 REMEMBER ciprofloxacin Allergy Hives Verified 11/13/22 18:36 diclofenac AdvReac Severe CAUSED A Verified 11/13/22 18:36 SEIZURE propofol AdvReac Severe agitated, Verified 11/13/22 18:36 combative, somnolent, hallucination tetracycline AdvReac Severe Abdominal Verified 11/13/22 18:36 Pain erythromycin base AdvReac Intermediate HEARING Verified 11/13/22 18:36 LOSS fentanyl AdvReac Intermediate depression Verified 11/13/22 18:36 meperidine [From Demerol] AdvReac Intermediate HALLUCINATI Verified 11/13/22 18:36 ONS metformin AdvReac Intermediate JITTERY, Verified 11/13/22 18:38 LACTIC ACIDOSIS ropinirole AdvReac Intermediate HALLUCINATI Verified 11/13/22 18:36 ONS Consultations 11/13/22 17:06 ED Decision to Admit Stat Ordered Studies Abdomen/Pelvis CT 11/13/22 14:06 CT SCAN OF THE ABDOMEN AND PELVIS WITHOUT IV CONTRAST CLINICAL HISTORY: Flank pain. Fever. COMPARISON STUDY: Abdominal CT dated 11/03/2022. TECHNIQUE: CT scan of the abdomen and pelvis is performed from the lung bases to the proximal femora. Images are reviewed in the axial, sagittal, and coronal planes. IV contrast was not administered for this examination. A dose lowering technique was utilized adhering to the principles of ALARA. CT DOSE: 1088.75 mGy.cm FINDINGS: Lung bases: The heart is normal in size and without pericardial effusion. The lung bases are clear noting bibasilar atelectasis. Liver: The unenhanced liver is normal in size, contour, and attenuation. There is no intrahepatic biliary ductal dilatation. Gallbladder: Surgically absent noting clips in the gallbladder fossa. Spleen: Normal in size and attenuation. Pancreas: The unenhanced pancreas is moderately atrophic and grossly unremarkable. Adrenal glands: Unremarkable. Kidneys: The unenhanced kidneys are normal in size and without hydronephrosis. A right ureteral stent is in appropriate position. No calcifications are identified in the right ureter along the course of the stent. There is mild ur othelial thickening within the right renal pelvis and the right ureter with surrounding infiltration. There are least 3 calcifications in the right lower pole which measure up to 4 mm. No left renal calculi are identified and there is no left ureteral stone. There is no evidence of contour deforming renal mass lesion. Abdominal vasculature: The abdominal aorta is normal in course and caliber not ing moderate atherosclerotic calcification. Bowel: There are scattered colonic diverticula without CT evidence of acute diverticulitis. No bowel obstruction is seen. Mild fecal retention is noted th roughout the colon. The appendix is well-visualized and normal. Peritoneum: There is no intraperitoneal free air or abdominal ascites. Lymphadenopathy: None. Pelvic viscera: The bladder is normal as visualized, and contains the distal end of a right ureteral stent. The uterus is surgically absent. No adnexal lesion is seen. Skeletal structures: The skeletal structures are osteopenic. No lytic or blastic lesions are seen. There is mild lumbosacral spondylosis. IMPRESSION: 1. A right ureteral stent is in appropriate position. No calcifications are seen in the right ureter along the course of the stent and there is no hydronephrosis. 2. Urothelial thickening is seen in the right renal pelvis and along the course of the right ureter with mild surrounding infiltration. This may be related to the presence of an indwelling stent. Correlate with clinical findings and urinalysis for evidence of superimposed infection. 3. Right lower pole calcifications are similar to previous. 4. Additional findings as above. ACT 112: Negative or not required by law. Electronically signed by: Edilberto Bermudez M.D. 11/13/2022 3:46 PM Hospital Course (1) Abdominal pain: Abdominal Pain, recent admission for septicemia 2/2 pyelonephritis UC 11/04/2022 E. coli: Pansensitive Treated during admission with Rocephin and transition to cefdinir as outpatient - CT-A/P: 1. A right ureteral stent is in appropriate position. No calcifications are seen in the right ureter along the course of the stent and there is no hydronephrosis. 2. Urothelial thickening is seen in the right renal pelvis and along the course of the right ureter with mild surrounding infiltration. This may be related to the presence of an indwelling stent. Correlate with clinical findings and urinalysis for evidence of superimposed infection. 3. Right lower pole calcifications are similar to previous. 4. Additional findings as above. - UA with 3+ blood, 2_ protein, trace ketones. -LE, -bacteria, +Epithelial cells. UC pending. - Urology consulted. Rash to cipro (given in ER), gave benadryl --> converted to rocephin which she has tolerated previously - On admission mildly hyponatremic, glucose 288, elevated lactate of 3.0, no transaminitis. WBC is not elevated, hemoglobin is 12.5. - Received 2 L NSS, Zofran, morphine while in ER - Suspect abd pain is secondary to stent discomfort, seen by urology, no plan for urologic intervention. Stent is in correct position and UA does not appear grossly infected. - D/C home on PRN Pyridium, Oxybutynin, and Tamsulosin - Follow up as scheduled for stent removal on 11/24 - Patient requested a different antibiotic because she was convinced the Cefdinir made her sick, she was agreeable to trying Doxycycline. This is likely to cause GI upset, but will rx at her request. If this occurs, she should resume the Cefdinir. She only has 5 more days of antibiotics to complete. (2) S/P ureteral stent placement: (3) Nocturnal hypoxia: - Continue cpap at HS with O2 (4) Diabetes mellitus type 2, uncontrolled, with complications: Hold home Tradjenta, Humalog Continue basal bolus insulin Glucose checks AC/at bedtime Goal [id number] - Resume home regimen (5) RLS (restless legs syndrome): Continue gabapentin, Sinemet, fall precautions (6) AML M3 (acute promyelocytic leukemia) in remission: - With increased granulocyte counts as outpt - Discussed w/ pt, requests blood smear given hx and rising outpt counts with intermittent RBC suppression. Ordered - No pancytopenia - Follow up with oncologist in [place] - Peripheral smear ordered at her request, this can be followed up by her pcp and oncology (7) GERD (gastroesophageal reflux disease): - Continue Pepcid (8) Depression: - Continue Buspar (9) Seizure disorder: No recent seizures Controlled on Depakote 500 mg a.m., 1000 mg at bedtime Continue [employer] Klonopin Plan Patient is medically and hemodynamically stable for discharge home today. Plan as outlined above which has been discussed in detail with Dr. Vick who has also seen and evaluated the patient and agrees with aforementioned. Total Time Total Time Spent Total Time Spent (In Minutes): <30 minutes Discharge Plan Discharge Items Patient Disposition: Home - Self-Care Reason For Visit: ABDOMINAL PAIN, UTI,STENT OBST Discharge Diagnosis: abdominal pain, suspect due to indwelling ureteral stent Activity: Resume your previous activity Non-emergency contact: Primary Care Provider and Urologist Call non-emergency contact if: you have any medication questions Follow-up/Referrals: Kina Aguiar D.O. [Primary Care Provider] - Diet: Carb Consistent or DM2 Addtl Attending Provider Instructions: You were hospitalized due to complaints of abdominal pain. You underwent a CT of your abdomen and pelvis which did show a correctly positioned stent in your right ureter as well as some surrounding inflammation. Your urine does not appear to be infected, although it was sent for a culture which is pending. At this time, it is felt that the discomfort you are experiencing is due to your stent. You will be discharged home on the following three medications to help offset your stent discomfort: Pyridium 200mg every 8 hours as needed, Oxybutynin 5mg twice a day as needed for pain, and Tamsulosin 0.4mg to take before bed. It is important that you resume your Cefdinir 300mg, one tablet twice a day until it is gone. You requested to try a different antibiotic due to concern that the Cefdinir was causing you to be sick. The new antibiotic that you were agreeable to try is Doxycycline. This will be taken twice a day and your next dose is due on 11/15/22. Complete the course. Follow up for stent removal as scheduled on 11/24/22. We recommend that you also follow up with your family doctor within 1 week of discharge. If you have any questions after you leave the hospital, please call the nonemergency number listed on your discharge paperwork. In the event of a medical emergency, call 911. Pending Studies at Discharge: Yes Studies:: urine culture Stand-Alone Forms: My [facility] [employer], Smoking Cessation Medications and DC Order Prescriptions: New phenazopyridine [Pyridium] 200 mg tablet 200 mg PO Q8H PRN (Reason: pain) Qty: 10 0RF oxybutynin chloride 5 mg tablet 5 mg PO Q12H PRN (Reason: bladder spasms) Qty: 14 0RF tamsulosin [Flomax] 0.4 mg capsule 0.4 mg PO HS Qty: 10 0RF doxycycline hyclate 100 mg tablet 100 mg PO BID Qty: 10 0RF Rx Instructions: start 11/15/22 Continued diltiazem HCl 120 mg capsule,extended release 24hr 120 mg PO QAM Qty: 90 3RF (DME) OneTouch Verio test strips Strip See Rx Instructions .ROUTE .MEDSUPPLY Qty: 200 0RF Rx Instructions: Test blood sugar 2 times daily clonazepam [Klonopin] 0.5 mg tablet 0.5 mg PO BID 30 Days Qty: 60 0RF aspirin 81 mg tablet,chewable 81 mg PO QAM nystatin 100,000 unit/gram powder 1 applic topical BID PRN (Reason: Skin Irritation) triamcinolone acetonide 0.1 % cream 1 applic topical BID PRN (Reason: Skin Irritation) divalproex [Depakote] 500 mg tablet,delayed release (DR/EC) 500 mg PO .COMPLEX Qty: 90 5RF Rx Instructions: 1 tab po in the morning and 2 tabs po at bedtime. gabapentin [Neurontin] 300 mg capsule 300 mg PO .COMPLEX Qty: 120 5RF Rx Instructions: 300 mg PO takes 300 mg in the morning and take 900 mg in the evening; cholecalciferol (vitamin D3) 25 mcg (1,000 unit) capsule 25 mcg PO QAM albuterol sulfate 90 mcg/actuation HFA aerosol inhaler 2 puff inhalation Q6H PRN (Reason: Shortness Of Breath) famotidine 20 mg tablet 20 mg PO BID buspirone 30 mg tablet 30 mg PO BID cetirizine 10 mg Tablet 10 mg PO QAM meclizine 12.5 mg Tablet 12.5 mg PO UD PRN (Reason: dizzy) lansoprazole [Prevacid] 30 mg capsule,delayed release(DR/EC) 30 mg PO BID nitroglycerin [Nitrostat] 0.4 mg Tablet, Sublingual 0.4 unit Sublingual UD PRN (Reason: Chest Pain) epinephrine [EpiPen] 0.3 mg/0.3 mL Auto-Injector 0.3 mg IM Q3H PRN (Reason: Allergic Reaction) dicyclomine 10 mg Capsule 10 mg PO QID PRN (Reason: IBS) cyclobenzaprine 10 mg Tablet 10 mg PO TID PRN (Reason: MUSCLE SPASMS) Cbd Gummies 1 tab PO HS PRN (Reason: Sleep) Tradjenta 5 mg tablet 5 mg PO QAM insulin lispro [Humalog KwikPen Insulin] 100 unit/mL Insulin Pen 1 sliding scale dose SUBCUT USEASDIRECTD carbidopa-levodopa 50-200 mg tablet extended release 1 tab PO BID Rx Instructions: TAKE ONE TABLET BY MOUTH TWO TIMES A DAY Nurtec ODT 75 mg tablet,disintegrating 75 mg PO DIRECTED Rx Instructions: May take every 48 hours po as needed for a migraine. calcium carbonate [Tums] 200 mg calcium (500 mg) Tablet,Chewable 500 mg PO Q6H PRN (Reason: dyspepsia) Qty: 30 0RF tramadol 50 mg tablet 50 mg PO Q8H PRN (Reason: pain) Qty: 10 0RF ondansetron HCl 4 mg Tablet 4 mg PO Q8H PRN (Reason: NAUSEA/VOMITING) Qty: 30 0RF clotrimazole 1 % Cream 1 applic TOPICAL BID Rx Instructions: Apply to affected area twice daily for seven days Discontinued cefdinir 300 mg capsule 300 mg PO BID 11 Days Qty: 23 0RF Rx Instructions: Take first dose this evening. Admission Data Admit Date/Time: 11/13/22 17:40 Attending Provider: Juan Vick Admit Provider: Antoine Eric Primary Care Provider: Kina Aguiar Other Providers: Antoine Eric Coding Level of Care Code HOSP INP/OBS DISCH 30 MIN/LESS Diagnoses Abdominal pain R10.9 S/P ureteral stent placement Z96.0 Nocturnal hypoxia G47.34 Diabetes mellitus type 2, uncontrolled, with complications E11.8; E11.65 RLS (restless legs syndrome) G25.81 AML M3 (acute promyelocytic leukemia) in remission C92.41 GERD (gastroesophageal reflux disease) K21.9 Depression F32.9 Seizure disorder G40.909
[2022-11-14] MEDS ORDERED: cefTRIAXone SODIUM 2,000 MG in DEXTROSE 5% 50 ML IV SCH (15:00)
== END 2022-11-14 16:15 | disposition home or self-care (01) ==
LOC: ED 13:50 → 3E 13:50 → SUATTDRO 17:40 → 3E 20:22

== ENCOUNTER 2025-03-26 05:25 | Observation (INO) ==
--- NOTE | 2025-02-24 11:54 | PAT Medication Instructions ---
Medication Instructions Date of Service February 24, 2025 Home Medications Medication Instructions Recorded blood sugar diagnostic (OneTouch #200 ea 08/01/22 Verio test strips) calcium carbonate (Tums) 500 mg (2.5 x 200 mg calcium (500 11/08/22 mg)) PO Q6H PRN dyspepsia #30 tabs ondansetron HCl 4 mg tablet 4 mg PO Q8H PRN NAUSEA/VOMITING 11/08/22 #30 tabs carbidopa ER 50 mg-levodopa 200 mg 1 tab PO BID 90 days #180 tabs 07/30/24 tablet,extended release clonazepam 0.5 mg tablet (Klonopin) 0.5 mg PO BID 30 days #60 tabs 07/30/24 divalproex 500 mg tablet,delayed 500 mg PO .COMPLEX #180 tabs 07/30/24 release (Depakote) gabapentin 300 mg capsule 300 mg PO .COMPLEX #360 caps 07/30/24 (Neurontin) rimegepant 75 mg disintegrating 75 mg PO UD PRN MIGRAINES #8 tabs 07/30/24 tablet (Nurtec ODT) pen needle, diabetic 32 gauge x #100 ea 08/01/24" (BD Ness 2nd Gen Pen Needle) insulin lispro 100 unit/mL See Rx Instructions subcut 10/17/24 subcutaneous pen (Humalog KwikPen USEASDIRECTD #15 mL (U-100) Insulin) cetirizine 10 mg tablet 10 mg PO QAM PRN dicyclomine 10 mg capsule 10 mg PO QID PRN epinephrine 0.3 mg/0.3 mL injection, auto-injector (EpiPen) 0.3 mg IM Q3H PRN lansoprazole 30 mg capsule,delayed release (Prevacid) 30 mg PO BID meclizine 12.5 mg tablet 12.5 mg PO UD PRN nitroglycerin 0.4 mg sublingual tablet (Nitrostat) 0.4 unit sublingual UD PRN cyclobenzaprine 10 mg tablet 10 mg PO TID PRN nystatin 100,000 unit/gram topical powder 1 applic topical BID PRN triamcinolone acetonide 0.1 % topical cream 1 applic topical BID PRN famotidine 20 mg tablet 20 mg PO BID calcium carbonate (Tums) 500 mg (2.5 x 200 mg calcium (500 mg)) PO Q6H PRN ondansetron HCl 4 mg tablet 4 mg PO Q8H PRN clotrimazole 1 % topical cream 1 applic topical BID PRN cholecalciferol (vitamin D3) 1,250 mcg (50,000 unit) capsule 50,000 unit PO Q7D carbidopa ER 50 mg-levodopa 200 mg tablet,extended release 1 tab PO BID clonazepam 0.5 mg tablet (Klonopin) 0.5 mg PO BID divalproex 500 mg tablet,delayed release (Depakote) 500 mg PO .COMPLEX gabapentin 300 mg capsule (Neurontin) 300 mg PO .COMPLEX rimegepant 75 mg disintegrating tablet (Nurtec ODT) 75 mg PO UD PRN cyanocobalamin (vitamin B-12) 1,000 mcg capsule 1,000 mcg PO Q7D insulin lispro 100 unit/mL subcutaneous pen (Humalog KwikPen (U-100) Insulin) See Rx Instructions subcut USEASDIRECTD diltiazem HCl 120 mg capsule,extended release 24 hr (Cardizem CD) 120 mg PO QAM insulin glargine 100 unit/mL (3 mL) subcutaneous pen (Basaglar KwikPen U-100 Insulin) 30 unit subcut QAM Continue as directed epinephrine 0.3 mg/0.3 mL injection, auto-injector (EpiPen) 0.3 mg IM Q3H PRN(if needed) meclizine 12.5 mg tablet 12.5 mg PO UD PRN(if needed) nitroglycerin 0.4 mg sublingual tablet (Nitrostat) 0.4 unit sublingual UD PRN(if needed) divalproex 500 mg tablet,delayed release (Depakote) 500 mg PO .COMPLEX gabapentin 300 mg capsule (Neurontin) 300 mg PO .COMPLEX rimegepant 75 mg disintegrating tablet (Nurtec ODT) 75 mg PO UD PRN(if needed) STOP taking 24 hours before surgery nystatin 100,000 unit/gram topical powder 1 applic topical BID PRN triamcinolone acetonide 0.1 % topical cream 1 applic topical BID PRN clotrimazole 1 % topical cream 1 applic topical BID PRN DO NOT take the morning of surgery cetirizine 10 mg tablet 10 mg PO QAM PRN dicyclomine 10 mg capsule 10 mg PO QID PRN calcium carbonate (Tums) 500 mg (2.5 x 200 mg calcium (500 mg)) PO Q6H PRN cholecalciferol (vitamin D3) 1,250 mcg (50,000 unit) capsule 50,000 unit PO Q7D cyanocobalamin (vitamin B-12) 1,000 mcg capsule 1,000 mcg PO Q7D insulin lispro 100 unit/mL subcutaneous pen (Humalog KwikPen (U-100) Insulin) See Rx Instructions subcut USEASDIRECTD Take morning of surgery With a small sip of water, OTHERWISE NOTHING TO EAT OR DRINK AFTER MIDNIGHT: diltiazem HCl 120 mg capsule,extended release 24 hr (Cardizem CD) 120 mg PO QAM lansoprazole 30 mg capsule,delayed release (Prevacid) 30 mg PO BID cyclobenzaprine 10 mg tablet 10 mg PO TID PRN(if needed) famotidine 20 mg tablet 20 mg PO BID ondansetron HCl 4 mg tablet 4 mg PO Q8H PRN(if needed) carbidopa ER 50 mg-levodopa 200 mg tablet,extended release 1 tab PO BID clonazepam 0.5 mg tablet (Klonopin) 0.5 mg PO BID Take evening before surgery dicyclomine 10 mg capsule 10 mg PO QID PRN(if needed) lansoprazole 30 mg capsule,delayed release (Prevacid) 30 mg PO BID cyclobenzaprine 10 mg tablet 10 mg PO TID PRN(if needed) famotidine 20 mg tablet 20 mg PO BID calcium carbonate (Tums) 500 mg (2.5 x 200 mg calcium (500 mg)) PO Q6H PRN(if needed) ondansetron HCl 4 mg tablet 4 mg PO Q8H PRN(if needed) carbidopa ER 50 mg-levodopa 200 mg tablet,extended release 1 tab PO BID clonazepam 0.5 mg tablet (Klonopin) 0.5 mg PO BID Insulin Dependent Diabetic Patients * Test your blood sugar the morning of surgery * If Blood Sugar is GREATER THAN 150, take HALF of your regular dose of: insulin glargine 100 unit/mL (3 mL) subcutaneous pen (Basaglar KwikPen U-100 Insulin). * If Blood Sugar is LESS THAN 150, DO NOT TAKE ANY:insulin glargine 100 unit/mL (3 mL) subcutaneous pen (Basaglar KwikPen U-100 Insulin). Other Notes If you have any questions please call us at [phone] or [phone] or [phone] or [phone]
--- NOTE | 2025-02-25 14:52 | Anesthesiology Consultation ---
Date of Service February 25, 2025 Assessment & Plan (1) Encounter for pre-operative examination: - Check BSG DOS - Infectious disease screening: Per assessment on 02/24/25- No known recent infectious disease contacts or current infectious disease symptoms. - Outpatient joint assessment: Pt currently scheduled for inpatient pathway. If surgeon requests review for outpatient joint pathway, patient is not recommended candidate for outpatient joint program from anesthesia standpoint based on available information. - S/P Right TKA (03/30/22): Neuraxial + regional at [facility]. No issues noted per post-op anesthesia progress note. - S/P cystoscopy, TURBT, left retrograde pyelogram, stent (02/27/23): LMA#4, atraumatic attempt x1 at [facility]. No issues noted per post-op anesthesia progress note. - Medication/anesthesia reactions: * Severe hypotension postoperatively per pt. * Had seizure perioperatively with neck lumpectomy ~6 years ago. * "chemical imbalance in the brain led to a 3 year depression with fentanyl" and will become mean * Aggressive post anesthesia and has "beat the staff up before" after proprofol. * Per records, *Pt states cannot receive propofol and states must have alternative options* - Patient acceptable risk for surgery pending surgeon-ordered cardiology ([facility] cardio, appt 03/07) and PCP (Dr. Kina Shields, appt 03/12) preop evaluations. Chart Review Chart Review: Patient seen in Pre Admission Testing Teaching & Discussion Pre-Anesthesia Teaching/Discussion Notes: Instructed NPO after midnight before surgery,except medications with 15 cc of water. Medication instructions provided according to the PAT guidelines. History Surgery Operation Date: 03/26/25 09:10 Proposed Procedures p Right Total Hip Arthroplasty - Manish Quiroz MD Height/Weight Height: 5 ft 4.5 in Weight: 90.1 kg Allergies Allergy/AdvReac Type Severity Reaction Status Date / Time bee venom protein (honey bee) Allergy Severe All Verified 02/25/25 14:37 stinging insects - Anaphylaxis benzonatate Allergy Severe Anaphylaxis Verified 02/24/25 10:14 cephalexin [From Keflex] Allergy Severe Rash Verified 02/24/25 10:14 fish derived Allergy Severe Respiratory Verified 02/25/25 14:37 distress glimepiride Allergy Severe Unknown Verified 02/25/25 14:37 Iodinated Contrast Media Allergy Severe Difficulty Verified 02/24/25 10:14 Breathing metoclopramide Allergy Intermediate Hives, rash Verified 02/25/25 14:37 metronidazole Allergy Intermediate Rash Verified 02/24/25 10:14 sucralfate Allergy Intermediate Hives, rash Verified 02/25/25 14:37 Sulfa (Sulfonamide Allergy Intermediate Hives Verified 02/24/25 10:14 Antibiotics) trimethoprim Allergy Intermediate Hives Verified 02/24/25 10:14 adhesive tape Allergy Mild Rash Verified 02/24/25 10:14 doxepin Allergy Mild Rash Verified 02/24/25 10:14 norfloxacin Allergy Mild Rash Verified 02/24/25 10:14 cefadroxil Allergy Unknown Unknown Verified 02/24/25 10:14 Phenothiazines Allergy Unknown Unknown Verified 02/24/25 10:14 prochlorperazine Allergy Unknown Facial Verified 02/25/25 14:37 [From Compazine] spasms, eyes rolled up into her head trazodone Allergy Unknown Unknown Verified 02/25/25 14:37 ciprofloxacin Allergy Hives Verified 02/24/25 10:14 COVID-19 (SARS-CoV-2) AdvReac Severe hx of Verified 02/24/25 10:50 vaccine, jocelyne guillain-barre syndrome diclofenac AdvReac Severe Caused Verified 02/25/25 14:37 seizure Influenza Virus Vaccines AdvReac Severe hx Verified 02/24/25 10:50 guillain-barre syndrome lactose AdvReac Severe Abdominal Verified 02/25/25 14:37 pain, N/V, diarrhea propofol AdvReac Severe Agitated, Verified 02/25/25 14:37 combative, somnolent, hallucination tetracycline AdvReac Severe Abdominal Verified 02/24/25 10:14 Pain erythromycin base AdvReac Intermediate HEARING Verified 02/24/25 10:14 LOSS fentanyl AdvReac Intermediate Chemical Verified 02/25/25 16:05 imbalance led to a 3 year depression per patient meperidine [From Demerol] AdvReac Intermediate Hallucinati Verified 02/25/25 14:57 ons metformin AdvReac Intermediate Jittery, Verified 02/25/25 14:57 lactic acidosis ropinirole AdvReac Intermediate Hallucinati Verified 02/25/25 14:57 ons Medications Home Medications Medication Instructions Recorded Confirmed Last Taken cetirizine 10 mg tablet 10 mg PO QAM PRN allergies 10/04/18 02/24/25 11/03/22 dicyclomine 10 mg capsule 10 mg PO QID PRN IBS 10/04/18 02/24/25 02/13/23 epinephrine 0.3 mg/0.3 mL 0.3 mg IM Q3H PRN Allergic Reaction 10/04/18 02/24/25 Unknown injection, auto-injector (EpiPen) lansoprazole 30 mg capsule,delayed 30 mg PO BID 10/04/18 02/24/25 02/26/23 22:30 release (Prevacid) meclizine 12.5 mg tablet 12.5 mg PO UD PRN dizzy 10/04/18 02/24/25 Unknown nitroglycerin 0.4 mg sublingual 0.4 unit sublingual UD PRN Chest 10/04/18 02/24/25 Unknown tablet (Nitrostat) Pain cyclobenzaprine 10 mg tablet 10 mg PO TID PRN MUSCLE SPASMS 07/13/21 02/24/25 Unknown nystatin 100,000 unit/gram topical 1 applic topical BID PRN Skin 07/30/2102/06 Unknown powder Irritation triamcinolone acetonide 0.1 % 1 applic topical BID PRN Skin 07/30/21 02/24/25 Unknown topical cream Irritation famotidine 20 mg tablet 20 mg PO BID 08/23/21 02/24/25 02/26/23 22:30 blood sugar diagnostic (OneTouch #200 ea 08/01/22 02/13/25 Unknown Verio test strips) calcium carbonate (Tums) 500 mg (2.5 x 200 mg calcium (500 11/08/22 02/24/25 Unknown mg)) PO Q6H PRN dyspepsia #30 tabs ondansetron HCl 4 mg tablet 4 mg PO Q8H PRN NAUSEA/VOMITING 11/08/22 02/24/25 02/13/23 #30 tabs clotrimazole 1 % topical cream 1 applic topical BID PRN ECZEMA 11/13/22 02/24/25 11/13/22 cholecalciferol (vitamin D3) 1,250 50,000 unit PO Q7D 02/14/23 02/24/25 02/20/23 mcg (50,000 unit) capsule carbidopa ER 50 mg-levodopa 200 mg 1 tab PO BID 90 days #180 tabs 07/30/24 02/24/25 Unknown tablet,extended release clonazepam 0.5 mg tablet (Klonopin) 0.5 mg PO BID 30 days #60 tabs 07/30/24 02/24/25 Unknown divalproex 500 mg tablet,delayed 500 mg PO .COMPLEX #180 tabs 07/30/24 02/24/25 Unknown release (Depakote) gabapentin 300 mg capsule 300 mg PO .COMPLEX #360 caps 07/30/24 02/24/25 Unknown (Neurontin) rimegepant 75 mg disintegrating 75 mg PO UD PRN MIGRAINES #8 tabs 07/30/24 02/24/25 Unknown tablet (Nurtec ODT) pen needle, diabetic 32 gauge x #100 ea 08/01/24 02/13/25 Unknown " (BD Ness 2nd Gen Pen Needle) cyanocobalamin (vitamin B-12) 1,000 mcg PO Q7D 09/20/24 02/24/25 Unknown 1,000 mcg capsule insulin lispro 100 unit/mL See Rx Instructions subcut 10/17/24 02/24/25 Unknown subcutaneous pen (Humalog KwikPen USEASDIRECTD #15 mL (U-100) Insulin) diltiazem HCl 120 mg 120 mg PO QAM 02/24/25 02/24/25 Unknown capsule,extended release 24 hr (Cardizem CD) insulin glargine 100 unit/mL (3 30 unit subcut QA 02/24/25 02/24/25 Unknown mL) subcutaneous pen (Basaglar KwikPen U-100 Insulin) Past Medical History Medical History 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" Anxiety Asthma No inhalers "From second-hand smoke exposure as a child" B12 deficiency Blind right eye D/t fungal infection Cognitive dysfunction, acquired Depression Diabetes type 2 IDDM Eczema GERD (gastroesophageal reflux disease) Controlled, stable per pt History of blood transfusion "must have HLA match and be CMV negative" Blood bank aware/coordinating History of COVID-fall- mild cold symptoms, resolved History of seizures Grand mal x1 (~1992) r/t voltaren and again 2016 non-traditional seizures (blacks out), most recent ~2020 Follows with [facility] History of toxic shock syndrome (~1999) In [place] s/p laparoscopy Hx of concussion Multiple, pt reports subsequent memory changes, son is caregiver Hx of endometriosis 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 > "resolved" Hx of migraines Hx of renal calculi Hyperlipidemia Hypertension Lactose intolerance Lesion of bladder PUNLMP- Dx 01/2023 Multiple falls Multiple thyroid nodules Nocturnal hypoxia Obesity Paroxysmal SVT (supraventricular tachycardia) chronic palpitations with associated dizziness and lightheadedness per pt, follows with [facility] Periodic limb movement disorder unsure if official diagnosis Post traumatic stress disorder Restless leg syndrome Restrictive lung disease + obstructive lung disease per records Right knee DJD Severe obstructive sleep apnea 2L O2 HS + CPAP Vitamin D deficiency Exercise / Class Metabolic Activity III < 4 Walking/Shop/Light housework Past Family History Family History Mother Heart disease Sister Epilepsy Heart disease Sister Epilepsy Other No family history of adverse response to anesthesia Past Surgical History Surgical History H/O partial thyroidectomy H/O pyeloplasty (1977) at [facility] H/O sinus surgery H/O tooth extraction wisdom teeth extraction H/O wisdom tooth extraction History of bone marrow biopsy History of bunionectomy Right foot History of colonoscopy History of dilatation and curettage D&E History of esophagogastroduodenoscopy (EGD) History of insertion of tunneled central venous catheter (CVC) with port s/p removal History of laparoscopy x8 History of loop recorder ~2012 > removed History of removal of tunneled central venous catheter (CVC) with port Hx laparoscopic cholecystectomy Hx of cataract surgery R/L Hx of neck surgery ~ at [facility] [place], neck mass (benign) removed. Hx of tonsillectomy Previous section x1 S/P breast lumpectomy benign S/P total abdominal hysterectomy S/P total knee replacement using cement Status post cystoscopy with ureteral stent placement s/p removal stent in 11/2022 Status post epigastric hernia repair, follow-up exam Past Anesthesia History No Family Hx of Anesthesia Complications and Other * "chemical imbalance in the brain led to a 3 year depression with fentanyl" and will become mean * Aggressive post anesthesia and has "beat the staff up before" after proprofol. * Severe hypotension postoperatively per pt. * Had seizure perioperatively with neck lumpectomy ~6 years ago. * Per records, *Pt states cannot receive propofol and states must have alternative options* History of PONV History of PONV Social History Smoking Status: Never smoker Do You Dip or Chew Tobacco: No Hx Alcohol Use: Yes Alcohol type: wine alcohol intake frequency: holidays/special occasions only Hx Substance Use: No substance use type: does not use Review of Systems Patient denies chest pain, shortness of breath, dyspnea on exertion, fever, chills, cough, wheezing, palpitations. Physical Exam Vital Signs BP 134/81 P 105 TEMP 98.3 SP02 96%RA RESP 18 Physical Full cervical extension range of motion. Full TMJ range of motion. TMD > 3.5 finger breaths Mallampati Score III Dentition: Right lower side cap ("missing piece/hole") Lungs: clear throughout to auscultation Cardiac: regular rate and rhythm, no murmurs noted Spine: normal Carotid arteries: negative bruit Extremities: no LE edema Lab Results Anesthesia Preop Results Results Anesthesia Widget: WBC 7.72 K/ul (4.8-10.8) 02/25/25 Hgb 13.5 g/dl (12.0-16.0) 02/25/25 Hct 39.1 % (37.0-47.0) 02/25/25 Plt 247 K/uL (130-400) 02/25/25 Na 137 mmol/L (136-145) 02/25/25 K 4.2 mmol/L (3.5-5.1) 02/25/25 Cl 103 mmol/L (98-107) 02/25/25 CO2 27 mmol/L (21-32) 02/25/25 BUN 15 mg/dl (6-23) 02/25/25 Creat 0.64 mg/dl (0.6-1.2) 02/25/25 Glucose Level 93 mg/dl (70-99(Fasting)) 02/25/25 PT 10.2 Seconds (9.0-12.0) 02/25/25 PTT 26 Seconds (21-31) 02/25/25 INR 0.9 (0.9-1.1) 02/25/25 HA1c 7.5 % (4.5-5.6) H 02/25/25 Urine Color Yellow 02/25/25 Urine Appearance Clear (Clear) 02/25/25 Urine pH 5.5 (4.5-7.5) 02/25/25 Urine Specific [place] 1.029 (1.000-1.030) 02/25/25 Urine Protein 1+ (Negative) H 02/25/25 Urine Glucose (UA) 1+ (Negative) H 02/25/25 Urine Ketones Trace (Negative) H 02/25/25 Urine Blood Negative (Negative) 02/25/25 Urine Nitrite Negative (Negative) 02/25/25 Urine Bilirubin Negative (Negative) 02/25/25 Urine Urobilinogen Negative (Negative) 02/25/25 Urine Leukocyte Esterase Trace (Negative) H 02/25/25 Urine WBC (Auto) 0-5 /hpf (0-5) 02/25/25 Urine RBC (Auto) 0-2 /hpf (0-2) 02/25/25 Urine Hyaline Casts (Auto) 0-2 /lpf (0-2) 02/25/25 Urine Epithelial Cells (Auto) 0-2 /hpf (0-2) 02/25/25 Urine Bacteria (Auto) None Seen (None Seen) 02/25/25 Blood Type A Positive 02/25/25 Antibody Screen NEGATIVE 02/25/25 Testing Laboratory Results Per patient "must have HLA match and be CMV negative"- had leukemia/hx transfusion reaction (1996; [place]). Reviewed with Micheal with blood bank. Further blood bank recommended labs done for further coordination. Order was placed in ambulatory and completed 03/04/25 at [facility]. Nothing further needed from PAT perspective in regards to this per blood bank. Electrocardiogram Date: 02/25/25 NSR at 99bpm. Moderate voltage criteria for LVH, may be normal variant (R in aVL, [place] product). Possible anterolateral infarct, age undetermined. Stress Test Date: 04/15/21 Type: DSE Negative DSE/stress ECG for ischemia at 92% MPHR. EF 55-60%. No RWMA. Type I DD. No significant valvular disease. Other Testing CT Thorax Date: 12/03/24 No acute abnormality seen in the chest. No lymphadenopathy or evidence for malignancy seen.
--- NOTE | 2025-03-26 05:20 | History & Physical Bridge Note ---
Date of Service March 26, 2025 History & Physical Bridge Note I have examined the patient, reviewed the History & Physical and in the interval since the performance of the History & Physical I have noted the following changes of clinical significance: consent and site verified.no changes noted
[~2025-03-26 05:25] MED LIST: ALLERGY Noted to ORDERED Medication SCH
[2025-03-26] MEDS: LR 60ML/HR IV SCH (05:55)
[2025-03-26] MEDS: VANCOMYCIN HCL 1,250 MG in SODIUM CHLORIDE 0.9% 250 ML IV SCH ×2 (05:55→21:30)
[2025-03-26] MEDS: LR 500ML BOLUS, THEN 15ML/HR IV SCH (05:55)
[2025-03-26] MEDS ORDERED: ceFAZolin 2000MG 2,000 MG/15 ML SYR IV SCH (06:00)
[2025-03-26] MEDS ORDERED: CLINDAMYCIN/D5W 600 MG/50 ML BAG IV ONE (06:27)
[2025-03-26] MEDS ORDERED: BUPIVACAINE 0.5 % 5 MG/1 ML PF 10ML VIAL ONE (06:33)
[2025-03-26] MEDS: CLINDAMYCIN/D5W 900 MG/50 ML BAG IV SCH (06:33)
[2025-03-26] MEDS ORDERED: MIDAZOLAM HCL 1 MG/ML 2ML VIAL ONE ×2 (06:34→06:49)
[2025-03-26] MEDS ORDERED: ONDANSETRON INJ 2 MG/ML 2 ML VIAL ONE (06:34)
[2025-03-26] MEDS ORDERED: DEXAMETHASONE SOD INJ 4 MG/ML VIAL ONE (06:34)
[2025-03-26] MEDS ORDERED: LIDOCAINE 2% 2 ML VIAL/AMP(20MG/ML) INFIL ONE (06:34)
[2025-03-26] MEDS ORDERED: PROPOFOL IV EMULSION 10 MG/ML 20 ML VIAL IV ONE ×4 (06:34→07:21)
[2025-03-26] MEDS ORDERED: fentaNYL citrate PF 100 MCG/2 ML VIAL ONE ×2 (06:35→08:13)
[2025-03-26] MEDS: CLINDAMYCIN 900 MG/D5W 50 ML BAG IV ONE (06:37)
[2025-03-26] MEDS: CITRIC ACID/SODIUM CITRATE 15 ML UDC PO STA (06:46)
[2025-03-26] MEDS ORDERED: ROCURONIUM BROMIDE 10 MG/ML 5 ML VIAL IV ONE ×2 (07:05→08:04)
[2025-03-26] MEDS ORDERED: ePHEDrine sulfate 50 MG/5 ML SYR ONE (07:15)
[2025-03-26] MEDS ORDERED: SUGAMMADEX SODIUM 200 MG/2 ML VIAL IV ONE (07:17)
[2025-03-26] MEDS ORDERED: NALOXONE HCL 0.4 MG/1 ML VIAL/CARP IV PRN ×2 (07:55→10:37)
[2025-03-26] MEDS ORDERED: FLUMAZENIL 0.1 MG/1 ML 10 ML VIAL IV PRN (07:55)
[2025-03-26] MEDS ORDERED: ePHEDrine sulfate 50 MG/ML AMP IV PRN (07:55)
[2025-03-26] MEDS ORDERED: ONDANSETRON INJ 2 MG/ML 2 ML VIAL IV PRN (07:55)
[2025-03-26] MEDS ORDERED: ATROPINE SULFATE 0.1 MG/ML 10ML SYR IV PRN (07:55)
[2025-03-26] MEDS ORDERED: PHENYLEPHRINE 100MCG/ML 5ML SYR ONE (08:04)
[2025-03-26] MEDS: TRANEXAMIC ACID 1,000 MG **IV Intra-op IV SCH (08:24)
[2025-03-26] MEDS: ROPIV 0.5% 246mg, Ketorolac 30mg, EPINEPHrine 0.5mg in NSS INFIL SCH (08:26)
--- NOTE | 2025-03-26 08:51 | Post Operative Brief Note ---
Immediate Post Op Note Date of Surgery March 26, 2025 Pre & Post Diagnosis Operation Date: 03/26/25 07:00 <No data on this case meets the specified criteria> Osteoarthritis right hip failed conservative management Noncemented right total replacement with dual mobility implant I identified the patient and participated in the time-out.: Yes Procedure Operation Date: 03/26/25 07:00 <No data on this case meets the specified criteria> Noncemented right total placement with dual mobility implants Surgeon Manish Quiroz MD Wharf Tender Elvi Estimated Blood Loss 200 Findings Consistent with Post-Op Diagnosis Labral tear osteoarthritis particularly acetabular side marked marginal osteophytes Fluids 1000 cc Complications None
--- NOTE | 2025-03-26 08:56 | Operative Report ---
Post Operative Report Pre & Post Diagnosis Operation Date: 03/26/25 07:00 <No data on this case meets the specified criteria> Osteoarthritis right hip pre and postop diagnosis I identified the patient and participated in the time-out.: Yes Procedure Operation Date: 03/26/25 07:00 <No data on this case meets the specified criteria> Noncemented right total replacement with dual mobility implant Surgeon Manish Quiroz MD Line Supervisor Elvi Estimated Blood Loss 200 Findings Consistent with Post-Op Diagnosis Significant acetabular disease labral tearing marginal osteophytes femoral and acetabular side Fluids 1000 cc Specimens Bone pathology Drains None Complications None Indications Severe pain right hip failed conservative management Description of Procedure After the patient was brought identified site verified consent verified antibiotics and TXA confirmed to be given the right lower extremity was prepped and draped use routine fashion with the patient in a left lateral decubitus position. Her BMI is high. Appropriate incision made. Sharp section carried through skin blunt dissection down through the fascia then and this was then incised under direct vision care taken to protect the sciatic nerve retractors placed. The hip was quite stiff. Short external rotators were released capsule was then incised and released the hip was then able to be dislocated. Femoral neck was resected appropriately leaving approximately half centimeter proximal to the lesser trochanter. Acetabular exposure was then obtained. The capsule was released to do this there was marked labral disease this was all excised there was significant acetabular wearing marked pulled and are asked hypertrophy this was all excised. Serial reaming carried up to 50 to 50 cup impacted into appropriate anteversion and inclination. Was then initially fixed with a 6.5 x 25 screw with excellent purchase. The hole director of communications was seated. Femur was then flexed and internally rotated at 0 broaching carried up to a size 2 high offset gave better hip abductor tension. Even with that there was still a little bit of posterior instability with flexion and internal rotation greater than 90 and 25 degrees. As result we elected to go with a dual mobility. Pretty much eliminated everything. Permanent to mobility liner was seated the permanent stem high offset #2 with a +4 head was seated leg lengths were excellent the hip stability was excellent wound was then irrigated and after controlling some minor bleeding with the aqua Rubia the wound was then closed with #2 Vicryl for the deep fascial layers 2-0 Vicryl for the subcutaneous layer and status of clips for skin. 2 syringes of local were applied to the superficial wound. In the supine position the leg lengths were excellent. Summary of implants size 50 mm shell acetabular shell sector cup DePuy 25 mm x 6.5 screw Rodessa hip solution 2 mobility liner 50/43 liner was 43/22 head was 22 mm +4 metal femoral stem was 2 high offset stem. EBL was 200 cc crystalloid per anesthesia 1000 cc bone pathology and x-ray pending. Family contacted son Wilfred [phone]. DVT PE prophylaxis to start tomorrow. I attest to the content of the Intraoperative Record and any orders documented therein. Any exceptions are noted below.
--- NOTE | 2025-03-26 08:56 | Operative Report ---
Post Operative Report Pre & Post Diagnosis Operation Date: 03/26/25 07:00 Pre-Op Diagnosis: Right Hip Osteoarthritis Post-Op Diagnosis: Right Hip Osteoarthritis I identified the patient and participated in the time-out.: Yes Procedure Operation Date: 03/26/25 07:00 Actual Procedures p Right Total Hip Arthroplasty, Uncemented(Right) - Manish Quiroz MD Surgeon Manish Quiroz MD Aircraft Fueler Elvi Estimated Blood Loss 200 Findings Consistent with Post-Op Diagnosis Specimens Right femoral head Description of Procedure The patient was brought to the operative suite where she underwent anesthesia. Placed in left lateral decubitus position. Right lower extremity was prepped and draped in the usual sterile fashion. Surgical timeout was performed. Patient underwent a right total hip arthroplasty. Please see Dr. Quiroz's operative report for full details. I was present and assisted with patient positioning, limb positioning, soft tissue retraction, hemostasis, hardware implantation, wound closure, postoperative dressing placement. The patient was awakened and taken to the recovery in satisfactory condition. I attest to the content of the Intraoperative Record and any orders documented therein. Any exceptions are noted below.
--- NOTE | 2025-03-26 08:58 | Discharge Summary ---
Date of Service March 27, 2025 Admission HPI Per Admitting Provider Significant severe right hip pain here for elective right total hip replacement after failed conservative management Principal Diagnosis Osteoarthritis right hip Discharge Data Allergies Allergy/AdvReac Type Severity Reaction Status Date / Time bee venom protein (honey bee) Allergy Severe All Verified 03/26/25 05:34 stinging insects - Anaphylaxis benzonatate Allergy Severe Anaphylaxis Verified 03/26/25 05:34 cephalexin [From Keflex] Allergy Severe Rash Verified 03/26/25 05:34 fish derived Allergy Severe Respiratory Verified 03/26/25 05:34 distress glimepiride Allergy Severe Unknown Verified 03/26/25 05:34 Iodinated Contrast Media Allergy Severe Difficulty Verified 03/26/25 05:34 Breathing metoclopramide Allergy Intermediate Hives, rash Verified 03/26/25 05:34 metronidazole Allergy Intermediate Rash Verified 03/26/25 05:34 sucralfate Allergy Intermediate Hives, rash Verified 03/26/25 05:34 Sulfa (Sulfonamide Allergy Intermediate Hives Verified 03/26/25 05:34 Antibiotics) trimethoprim Allergy Intermediate Hives Verified 03/26/25 05:34 adhesive tape Allergy Mild Rash Verified 03/26/25 05:34 doxepin Allergy Mild Rash Verified 03/26/25 05:34 norfloxacin Allergy Mild Rash Verified 03/26/25 05:34 cefadroxil Allergy Unknown Unknown Verified 03/26/25 05:34 Phenothiazines Allergy Unknown Unknown Verified 03/26/25 05:34 prochlorperazine Allergy Unknown Facial Verified 03/26/25 05:34 [From Compazine] spasms, eyes rolled up into her head trazodone Allergy Unknown Unknown Verified 03/26/25 05:34 ciprofloxacin Allergy Hives Verified 03/26/25 05:34 COVID-19 (SARS-CoV-2) AdvReac Severe hx of Verified 03/26/25 05:34 vaccine, jocelyne guillain-barre syndrome diclofenac AdvReac Severe Caused Verified 03/26/25 05:34 seizure Influenza Virus Vaccines AdvReac Severe hx Verified 03/26/25 05:34 guillain-barre syndrome lactose AdvReac Severe Abdominal Verified 03/26/25 05:34 pain, N/V, diarrhea propofol AdvReac Severe Agitated, Verified 03/26/25 05:34 combative, somnolent, hallucination tetracycline AdvReac Severe Abdominal Verified 03/26/25 05:34 Pain erythromycin base AdvReac Intermediate HEARING Verified 03/26/25 05:34 LOSS fentanyl AdvReac Intermediate Chemical Verified 03/26/25 05:34 imbalance 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 3 year depression per patient meperidine [From Demerol] AdvReac Intermediate Hallucinati Verified 03/26/25 05:34 ons metformin AdvReac Intermediate Jittery, Verified 03/26/25 05:34 lactic acidosis ropinirole AdvReac Intermediate Hallucinati Verified 03/26/25 05:34 ons Vaccinations None Consultations None Procedures Performed Operation Date: 03/26/25 07:00 <No data on this case meets the specified criteria> Noncemented dual mobility right total hip replacement Ordered Studies Bone pathology x-rays Hospital Course (1) Status post right hip replacement: Total Time Total Time Spent Total Time Spent (In Minutes): 10 Discharge Plan Discharge Items Reason For Visit: Right Hip Osteoarthritis Discharge Diagnosis: Status post right total hip replacement Follow-up/Referrals: Kina Aguiar D.O. [Primary Care Provider] - Scott Attending Provider Instructions: DIET: * Resume previous diet. MEDICATIONS: * Please take your prescriptions as instructed at your pre-op appointment and/or see medication discharge instructions listed above. * If concerns develop, call your physician's office at . SPECIAL CARE INSTRUCTIONS: * Ice/Elevate as instructed. * Keep dressing clean, dry, intact. * Your surgical extremity may be discolored due to prepping agents used on the skin. A bluish-green tint is a normal variant and should not cause alarm. Call your doctor at [phone] if: * Temperature above 101 degrees * Pain not relieved by pain medicine ordered * There is increased drainage or redness from any incision * You have any unanswered questions, problems or concerns. FOLLOW UP VISIT: * If not already scheduled, please call the office at to schedule a follow-up appointment. Stand-Alone Forms: My [employer] (formerly [employer]) Medications and DC Order Prescriptions: No Action (DME) OneTouch Verio test strips Strip See Rx Instructions .ROUTE .MEDSUPPLY Qty: 200 0RF Rx Instructions: Test blood sugar 2 times daily insulin lispro [Humalog KwikPen Insulin] 100 unit/mL insulin pen See Rx Instructions SUBCUT USEASDIRECTD MDD 50 units Qty: 15 1RF Rx Instructions: Inject per sliding scale subcutaneously use as directed; nystatin 100,000 unit/gram powder 1 applic topical BID PRN (Reason: Skin Irritation) triamcinolone acetonide 0.1 % cream 1 applic topical BID PRN (Reason: Skin Irritation) famotidine 20 mg tablet 20 mg PO BID cyanocobalamin (vitamin B-12) 1,000 mcg capsule 1,000 mcg PO Q7D diltiazem HCl [Cardizem CD] 120 mg capsule,extended release 24hr 120 mg PO QAM Qty: 90 3RF divalproex [Depakote] 500 mg tablet,delayed release (DR/EC) 500 mg PO .COMPLEX Qty: 180 3RF Rx Instructions: 500 mg orally 1 tab po in the morning and 2 tabs po at bedtime. Nurtec ODT 75 mg tablet,disintegrating 75 mg PO UD PRN (Reason: MIGRAINES) Qty: 8 5RF Rx Instructions: May take every 48 hours po as needed for a migraine. gabapentin [Neurontin] 300 mg capsule 300 mg PO .COMPLEX Qty: 360 3RF Rx Instructions: 300mg po in the morning and 900mg po in the evening. carbidopa-levodopa 50-200 mg tablet extended release 1 tab PO BID 90 Days Qty: 180 3RF Rx Instructions: TAKE ONE TABLET BY MOUTH TWO TIMES A DAY. clonazepam [Klonopin] 0.5 mg tablet 0.5 mg PO BID 30 Days Qty: 60 3RF (DME) pen needle, diabetic [BD Ness 2nd Gen Pen Needle] 32 gauge x 5/32" needle See Rx Instructions .Route Qty: 100 0RF Rx Instructions: use once daily with lantus cetirizine 10 mg Tablet 10 mg PO QAM PRN (Reason: allergies) meclizine 12.5 mg Tablet 12.5 mg PO UD PRN (Reason: dizzy) lansoprazole [Prevacid] 30 mg capsule,delayed release(DR/EC) 30 mg PO BID nitroglycerin [Nitrostat] 0.4 mg Tablet, Sublingual 0.4 unit Sublingual UD PRN (Reason: Chest Pain) epinephrine [EpiPen] 0.3 mg/0.3 mL Auto-Injector 0.3 mg IM Q3H PRN (Reason: Allergic Reaction) dicyclomine 10 mg Capsule 10 mg PO QID PRN (Reason: IBS) cyclobenzaprine 10 mg Tablet 10 mg PO TID PRN (Reason: MUSCLE SPASMS) calcium carbonate [Tums] 200 mg calcium (500 mg) Tablet,Chewable 500 mg PO Q6H PRN (Reason: dyspepsia) Qty: 30 0RF ondansetron HCl 4 mg Tablet 4 mg PO Q8H PRN (Reason: NAUSEA/VOMITING) Qty: 30 0RF clotrimazole 1 % Cream 1 applic TOPICAL BID PRN (Reason: ECZEMA) Rx Instructions: Apply to affected area twice daily for seven days cholecalciferol (vitamin D3) 1,250 mcg (50,000 unit) capsule 50,000 unit PO Q7D Rx Instructions: 50,000 units PO WEEKLY; insulin glargine [Basaglar KwikPen U-100 Insulin] 100 unit/mL (3 mL) insulin pen 30 unit subcut QAM Rx Instructions: Inject 20 units a day. TDD is in process of adjustments up to 50 units a day. Admission Data Admit Date/Time: 03/26/25 09:18 Attending Provider: Manish Quiroz Admit Provider: Jesus Boles Primary Care Provider: Kina Aguiar Other Providers: [facility],Home Health
--- NOTE | 2025-03-26 09:17 | XRay Report ---
XR pelvis 1-2V routine CLINICAL HISTORY: S/P R JOSÉ COMPARISON: 03/14/2025 FINDINGS: Right hip prosthesis shows no hardware complication. There is expected soft tissue gas. Sk in rashida are present. IMPRESSION: Unremarkable postoperative exam. ACT 112: Negative or not required by law. Electronically signed by: Ren Gaffney M.D. 03/26/2025 9:15 AM
[2025-03-26] MEDS: HYDROmorphone INJ 1 MG/ML SYRINGE IV PRN (09:30)
--- NOTE | 2025-03-26 10:36 | Anesthesiology Progress Note ---
Date of Service March 26, 2025 Anesthesia Post Procedure Vital Signs Vital Signs: Temp Pulse Pulse Resp BP Pulse Ox O2 Del Method 03/26/25 10:20 82 12 106/71 94 Nasal Cannula 03/26/25 10:10 86 10 L 98/73 L 93 Nasal Cannula 03/26/25 10:00 36.4 C L 90 20 118/78 94 Nasal Cannula 03/26/25 09:50 81 12 98/73 L 96 Oxymask 03/26/25 09:40 85 14 105/73 96 Oxymask 03/26/25 09:30 89 18 132/73 95 Oxymask 03/26/25 09:20 88 14 136/80 94 Oxymask 03/26/25 09:10 91 H 16 117/75 95 Oxymask 03/26/25 09:00 36.2 C L 101 H 16 109/75 95 Oxymask 03/26/25 05:59 36.7 C 93 H 20 118/81 93 Room Air O2 Flow Rate 03/26/25 10:20 3 03/26/25 10:10 3 03/26/25 10:00 3 03/26/25 09:50 8 03/26/25 09:40 8 03/26/25 09:30 10 03/26/25 09:20 10 03/26/25 09:10 10 03/26/25 09:00 10 03/26/25 05:59 Pain Intensity Right Hip: Pain Intensity: 6 Transfer of Care Handoff Completed per policy Notes Mental Status: alert / awake / arousable Patient Amnestic to Procedure: Yes Nausea / Vomiting: adequately controlled Pain: adequately controlled Airway Patency, RR, SpO2: stable & adequate BP & HR: stable & adequate Hydration State: stable & adequate Anesthetic Complications: no major complications apparent
[2025-03-26] MEDS ORDERED: MAGNESIUM HYDROXIDE SUSP 30 ML UDC PO PRN (10:37)
[2025-03-26] MEDS ORDERED: PHARMACY GLYCEMIC MGMT CONSULT PRN (10:37)
[2025-03-26] MEDS ORDERED: VANCOMYCIN CONSULT ACTIVE PRN (10:37)
[2025-03-26] MEDS ORDERED: DICYCLOMINE HCL 10 MG CAP PO PRN (10:37)
[2025-03-26] MEDS ORDERED: NITROGLYCERIN SL 0.4 MG/TAB TAB SL PRN (10:37)
[2025-03-26] MEDS ORDERED: bisacodyL 10 MG SUPP PR PRN (10:37)
--- NOTE | 2025-03-26 10:56 | Pharmacy Report ---
Pharmacy Glycemic Short Note 2 - Date of Service March 26, 2025 - Glycemic Short BSG Results (Last 24 hours): 03/26/25 03/26/25 05:50 09:03 POC Glucose 107 H 189 H OUTPATIENT ANTIDIABETIC REGIMEN: * basaglar 30 units qam, humalog SSI ASSESSMENT: * 59 year old s/p surgery, POD 0 - pharmacy consulted for glycemic management. Postop BSG >180 - appears steroids were given intraoperatively. Will give basal dose now and start novolog weight based stress 3 dosing. PLAN FOR INPATIENT GLYCEMIC CONTROL: * Hold outpatient oral diabetes medications * Basal insulin * Lantus 30-35 units x 1 now depending on lunch BSG * Bolus insulin * NovoLog per scale ACHS or Q6hrs while NPO * Goal Range: Low 110 mg/dL - High 140 mg/dL * Correction Factor: 20 mg/dL/unit * Nutritional / Prandial insulin per carb ratio of 1 unit per 6 grams CHO consumed
[2025-03-26] MEDS: oxyCODONE HCL IR 5 MG TAB (IMMEDIATE RELEASE) PO PRN (11:07)
[2025-03-26] MEDS: ONDANSETRON INJ 2 MG/ML 2 ML VIAL IV PRN (11:07)
[2025-03-26] MEDS ORDERED: DEXTROSE 50% 50 ML SYRINGE IV PRN (11:15)
[2025-03-26] MEDS ORDERED: CARBOHYDRATES FOR HYPOGLYCEMIA PO PRN (11:15)
[2025-03-26] MEDS ORDERED: GLUCOSE 40% GEL 15 GM TUBE PO PRN (11:15)
[2025-03-26] MEDS ORDERED: GLUCAGON FOR INJ 1 MG VIAL SQ PRN (11:15)
[2025-03-26] MEDS ORDERED: GLUCOSE 10 TAB/TUBE PO PRN (11:15)
--- NOTE | 2025-03-26 11:17 | Orthopedic Progress Note ---
Date of Service March 26, 2025 Assessment & Plan Admission and Anticipated Discharge Date Admission Date: March 26, 2025 Orthopedic Progress Note Patient doing well postop tolerated procedure well. Denies chest pain shortness of breath fever chills nausea vomiting headache. Vital signs are stable she is afebrile. Neurovascular check from sciatic nerve is normal. Postop x-rays were excellent. Assessment doing well continue care pathway son contacted. Initiate anticoagulation tomorrow.
[2025-03-26] MEDS: CARBIDOPA/LEVODOPA 50/200MG EXT REL TAB PO SCH (13:41)
[2025-03-26] MEDS: GABAPENTIN 300 MG CAP PO SCH ×2 (13:41→21:34)
[2025-03-26] MEDS: PANTOprazole 40 MG TAB PO SCH (13:41)
[2025-03-26] MEDS: dilTIAZem HCL 120 MG CAPCR PO SCH (13:41)
[2025-03-26] MEDS: DIVALPROEX DELAY RELEASE 500 MG TAB PO SCH ×2 (13:42→21:36)
[2025-03-26] MEDS: MULTIVITAMIN TAB PO SCH (13:42)
[2025-03-26] MEDS: DOCUSATE SODIUM 100 MG CAP PO SCH (13:50)
[2025-03-26] MEDS: ACETAMINOPHEN 500 MG TAB PO SCH (13:50)
[2025-03-26] MEDS: INSULIN ASPART PER UNIT CHARGE SC SCH (13:50)
[2025-03-26] MEDS: FAMOTIDINE 20 MG TAB PO SCH (13:51)
[2025-03-26] MEDS: clonazePAM 0.5 MG TAB PO SCH (13:51)
[2025-03-26] MEDS: TRANEXAMIC ACID 1,000 MG **IV Pre-op IV SCH (14:10)
[2025-03-26] MEDS: LANTUS PER UNIT CHARGE SC ONE (14:41)
--- NOTE | 2025-03-26 14:54 | Orthopedic Progress Note ---
Date of Service March 26, 2025 Assessment & Plan Admission and Anticipated Discharge Date Admission Date: March 26, 2025 Orthopedic Progress Note Postop check status post right total replacement. Patient is doing well. Denies chest pain shortness of breath fever chills nausea vomiting or headache. Vital signs are stable she is afebrile. Neurovascular check from acetic nerve is normal. Hip located wound dressing clean dry and intact. Postop x-rays look excellent. Assessment doing well get her out of bed to get her moving to get her sit in the chair full weightbearing postural indiscretion precautions follow the sheet this was described in detail to her she states she understands. Case management needed to get some home services. Initiate anticoagulation tomorrow.
[2025-03-26] MEDS: SODIUM CHLORIDE 0.9% 1,000 ML IV SCH (14:58)
[2025-03-26] MEDS: LANTUS PER UNIT CHARGE SC SCH (21:31)
[2025-03-26] MEDS: SENNA 8.6 MG TAB PO SCH (21:32)
[2025-03-27] MEDS: INSULIN ASPART PER UNIT CHARGE SC SCH (00:24)
--- NOTE | 2025-03-27 07:02 | Orthopedic Progress Note ---
Date of Service March 27, 2025 Assessment & Plan Admission and Anticipated Discharge Date Admission Date: March 26, 2025 Orthopedic Progress Note Postop day #1 status post left total hip replacement. She is doing well. She denies chest pain shortness of breath fever chills nausea vomiting or headache. Vital signs are stable she is afebrile. Neurovascular check from sciatic nerve is normal. Wound dressing clean dry and intact. Assessment doing well continue care pathway mobilize discontinue the abduction brace except for sleep. Full weightbearing as tolerated right lower extremity. Follow-up in 2 weeks for staple removal. Initiate anticoagulation.
--- NOTE | 2025-03-27 07:02 | Orthopedic Progress Note ---
Date of Service March 27, 2025 Assessment & Plan Admission and Anticipated Discharge Date Admission Date: March 26, 2025
[2025-03-27 07:20] LABS: Basophils # (auto) 0.02 K/uL (0.00-0.20); Basophils % (auto) 0.2 %; Eosinophils # (auto) 0.02 K/uL (0.00-0.50); Eosinophils % (auto) 0.2 %; Hematocrit (blood only) 27.8 % (37.0-47.0); Hemoglobin 9.4 g/dl (12.0-16.0); Immature Granulocytes # (auto) 0.08 K/uL (0.01-0.20); Immature Granulocytes % (auto) 0.6 %; Lymphocytes # (auto) 1.38 K/uL (1.20-3.40); Lymphocytes % (auto) 10.6 %; Mean Corpuscular Hemoglobin 31.3 pg (25.0-34.0); Mean Corpuscular Hgb Conc 33.8 g/dL (32.0-36.0); Mean Corpuscular Volume 92.7 fL (80.0-100.0); Mean Platelet Volume 9.6 fL (9.4-12.4); Monocytes # (auto) 0.77 K/uL (0.11-0.59); Monocytes % (auto) 5.9 %; Neutrophils # (auto) 10.73 K/uL (1.40-6.50); Neutrophils % (auto) 82.5 %; Platelet Count 181 K/uL (130-400); RDW Coefficient of Variation 12.4 % (11.5-14.5)
[2025-03-27 07:46] VITALS: BP 108/67; PULSE 88; RESP 16; TEMP 97.7; O2SAT 94
[2025-03-27 07:50] LABS: BUN Creatinine Ratio 21.1 (10-20); Calcium 7.8 mg/dl (8.6-10.3); Creatinine Clr Calc Pharmacy 85.7 ml/min; Potassium 4.8 mmol/L (3.5-5.1)
[2025-03-27] MEDS: APIXABAN 2.5 MG TAB PO SCH (08:55)
[2025-03-27] MEDS: dexAMETHasone 10 MG in SYRINGE 0 ML IV SCH (08:57)
[2025-03-27] MEDS: CALCIUM CARBONATE 500 MG CHEWABLE TAB PO PRN (09:37)
[2025-03-31] MEDS ORDERED: CYANOCOBALAMIN (B-12) 500 MCG TABLET PO SCH (09:00)
[2025-03-31] MEDS ORDERED: ERGOCALCIFEROL 1250 MCG (50,000 UNITS) CAP PO SCH (09:00)
== END 2025-03-27 11:15 | disposition home health service (06) ==
LOC: ASU 05:25 → INTOOBSV 09:18 → 3E 09:18